=== PATIENT | male | born 1970 | race Caucasian/White ===

== ENCOUNTER 2024-10-02 23:13 | Emergency (ER) | payer OTHER, SELFPAY ==
[2024-10-02 23:16] VITALS: BP 146/76; PULSE 117; RESP 20; TEMP 37; O2SAT 96
[2024-10-02 23:23] VITALS: PULSE 114
--- NOTE | 2024-10-03 00:19 | ECG_ITS ---
Test Date: 2024-10-03 00:27:42 Measurements Intervals [place] Rate: 82 P: 50 IN: 186 QRS: -24 QRSD: 102 T: 31 QT: 386 QTc: 452 Interpretive Statements SINUS RHYTHM BORDERLINE LEFT AXIS DEVIATION [QRS AXIS < -20] OTHERWISE UNREMARKABLE ECG No previous ECG available for comparison Electronically Signed On 10-04-2024 07:20:13 CDT by Amadeo De Los Santos M.D.
--- OUTSIDE RECORDS SUMMARY | 2024-10-03 00:44 | XMS_ITS | Encounter Summary ---
Author Organization [facility] Healthcare Address [address] [place] [address] Care Team Providers Care Riveter Name Role Phone Tam Lucas MD Unavailable [phone] Mariluz Johnson MD Unavailable [phone] Omid Ellis MD Primary Care Provider Viraj Balderas MD Unavailable [phone] Encounter Details Date Type Department Care Team (Late st Contact Info) Description 09/13/2024 Results Follow-Up [facility] Primary Care at [address] [address] Omid Ellis MD [address] [place] [address] [address] [place] [address] Hepatitis B surface antibody (immune status) Blood, Hepatitis B Surface Antigen Blood, Hepatitis C antibody Blood, Additional followed-up results: 10 Social History Tobacco Use Types Packs/Day Years Used Date Smoking Tobacco: Former Cigarettes Smokeless Tobacco: Former Chew Quit: 01/27/2019 Comments:Smoking History Pac ks/day: 0 Packs. Social smoker in college. Hx of chew Alcohol Use Standard Drinks/Week Comments Yes 0 (1 standard drink = 0.6 oz pur e alcohol) AUDIT-C Answer Date Recorded Q1: How often do you have a drink containing alc ohol? 2-4 times a month 12/27/2023 Q2: How many drinks containi ng alcohol do you have on a typical day when you are drinking? 3 or 4 12/27/2023 Q3: How often do you have si x or more drinks on one occasion? Monthly 12/27/2023 PHQ-2 Answer Date Recorded PHQ-2 Total Score (If total score is 3 or more points, staff should administer the PHQ-9) 0 09/12/2024 PHQ-9 Answer Date Recorded PHQ-9 Total Score 0 12/16/2023 Personal Safety Answer Date Recorded Have you ever been in or are you currently in a harmful physical or emotional relationship or is someone making you feel afraid or unsafe? 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 Roberts from Cardiology about the results. I have called and talked with the patient about the results. He will be going to [facility] for further evaluation. * Result Encounter Note - Omid Ellis MD - 09/13/2024 6:00 AM CDT Lab results show reassuring results for the most part with low HDL cholesterol which is a good/protective cholesterol. Recommend increasing physical exercise to help increase this but your actual cholesterol total cholesterol level is within normal limits. Very good vitamin B12 levels but low vitamin-D levels so I recommend that you start taking [id number] vitamin-D 3 at least 2000 IU or higher on daily basis. If otherwise normal electrolytes, kidney function, liver enzymes and reassuringblood count. I know there is mild elevation white blood count but that is likely reactive with the wound healing over your left ear from recent surgery. No sign of diabetes or pre-diabetes. documented in this encounter Plan of Treatment Not on file documented as of this encounter Visit Diagnoses Not on filedocumented in this encounter Care Teams Riveter Relationship Specialty Start Date End Date Omid Ellis MD [address] [place] [address] PCP - General Family Medicine 09/12/24 Tam Lucas MD [address] [place] [address] Referring Physician Dermatology 07/25/24 Mariluz Johnson MD [address] [place] [address] Referring Physician Dermatology 07/25/24 Viraj Balderas MD [address] [place] [address] Referring Physician Otolaryngology 09/12/24 documented as of this encounter
--- OUTSIDE RECORDS SUMMARY | 2024-10-03 00:44 | XMS_ITS | Clinical Summary ---
Author Organization [facility] Address [address] [place] [address] Phone Care Team Providers Care Fence Rider Name Role Phone Provider, None Primary Care Provider Unavailabl e Allergies No known active allergies Medications albuterol (ProAir HFA) 108 (90 Base) MCG/ACT Aerosol SolutionIndicat ions:Cough,Symp reynaldo of wheezing take 2 Puffs by inhalation every 4 hours as needed for Wheezing or Cough. 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 Gender Identity Not on file Sexual Orientation Not on file Last Filed Vital Signs Vital Sign Reading Time Taken Comments Blood Pressure 122/80 03/15/2020 5:36 PM ACQUISITION ANALYST Pulse 98 03/15/2020 5:36 PM ACQUISITION ANALYST Temperature 37 C (98.6 F) 03/15/2020 5:36 PM ACQUISITION ANALYST Respiratory Rate - - Oxygen Saturation 96% 03/15/2020 5:36 PM ACQUISITION ANALYST Inhaled Oxygen Concentration - - Weight - - Height - - Body Mass Index - - Plan of Treatment Health Maintenance Due Date Last Done Comments Hepatitis C Virus (HCV) Screening 1972 TdaP Immunization 1972 Hepatitis B Immunization (1 of 3 - 19+ 3-dose series) 08/01/1991 Colonoscopy 2017 Colorectal Cancer Screening 2017 Cologuard 2022 Immunochemical Fecal Occult Blood 2022 Pneumococcal Immunization (5 0+ years) (1 of 1 - PCV) 2022 Zoster Immunization (1 of 2) 2022 Influenza Immunization (#1) 2023 SARS-COV-2 Immunization ( season) 2023 Respiratory Syncytial Virus (RSV) Immunization (Adult) (1 - 1-dose 75+ series) 08/01/2047 Meningococcal Immunization (ACWY) Aged Out No longer eligible based on patient's age to complete this topic Pneumococcal Immunization Combined Aged Out No longer eligible based on patient's age to complete this topic Rotavirus Immunization Aged Out No lo nger eligible based on patient's age to complete this topic Care Teams Fence Rider Relationship Specialty Start Date End Date Provider, None [place] PCP - General 03/15/20
--- OUTSIDE RECORDS SUMMARY | 2024-10-03 00:44 | XMS_ITS | Referral Summary ---
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 Name Role Phone Tam Lucas MD Unavailable [phone] Mariluz Johnson MD Unavailable [phone] Drake Candelaria MD Primary Care Provider Viraj Balderas MD Unavailable [phone] Encounters Date Type Department Care Team Description 09/28/2024 Telephone [facility] Cardiology [address] 8th [place] [address] [place] [address] Andrea Ghosh MD 09/26/2024 Orders Only [facility] Primary Care at [place] [address] [place] [address] Drake Candelaria MD Aortic root dilatation (Primary Dx); Newly recognized heart murmur 09/25/2024 Telephone [facility] Cardiology [address] [facility] [address], [place] [address] Rome Brooks MD 09/22/2024 7:53 PM CDT - 09/24/2024 3:29 PM CDT Hospital Encounter [facility] [address] [place] [address] Konala, Sivasankara R., Lisa Dodd MD Hultgren, Britt Richard, MD Aortic root dilatation (Primary Dx) Discharge Disposition: Discharge to home or self care 09/22/2024 11:15 AM CDT Ancillary Procedure [facility] Cardiology at [address] [place] [address] Newly recognized heart murmur 09/13/2024 Results Follow-Up [facility] Primary Care at [address] [address] Drake Candelaria MD Hepatitis B surface antibody (immune status) Blood, Hepatitis B Surface Antigen Blood, Hepatitis C antibody Blood, Additional followed-up results: 10 09/12/2024 10:56 AM CDT - 09/12/2024 11:59 PM CDT Hospital Encounter [address] [address] Need for hepatitis B screening test; Encounter for hepatitis C screening test for low risk patient; Preventative health care; Class 1 obesity due to excess calories without serious comorbidity with body mass index (BMI) of 30.0 to 30.9 in adult; Prostate cancer screening Discharge Disposition: Discharge to home or self care 09/12/2024 10:45 AM CDT Lab [facility] Outpatient Lab at [address] [address] 09/12/2024 10:30 AM CDT Office Visit [facility] Primary Care at [address] [address] Drake Candelaria MD Preventative health care (Primary Dx); ADHD (attention deficit hyperactivity disorder), combined type; Class 1 obesity due to excess calories without serious comorbidity with body mass index (BMI) of 30.0 to 30.9 in adult; Newly recognized heart murmur; History of malignant melanoma; Family history of colon cancer; Encounter for hepatitis C screening test for low risk patient; Need for hepatitis B screening test; Hx of colonic polyps; Prostate cancer screening; Vitamin D insufficiency 09/05/2024 1:00 PM CDT Procedure visit [facility] Dermatology [address] [place] [address] [address] [place] [address] 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) 08/30/2024 9:30 AM CDT Office Visit [facility] Dermatology [address] [place] [address] [address] [place] [address] 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) 08/29/2024 12:00 PM CDT Procedure visit [facility] Dermatology [address] [place] [address] [address] [place] [address] Laura Cast MD 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) 08/24/2024 Results Follow-Up [facility] Dermatology [address] [place] [address] [address] [place] [address] Laura Cast MD Surgical pathology 08/23/2024 Orders Only [facility] [address] [place] [address] Laura Cast MD 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); Melanoma in situ of cheek (HCC) 08/22/2024 12:30 PM CDT Procedure visit [facility] Dermatology [address] [place] [address] [address] [place] [address] Laura Cast MD 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) (Primary Dx); History of malignant melanoma; Melanoma in situ of cheek (HCC); Neoplasm of uncertain behavior of skin 08/14/2024 4:00 PM CDT Office Visit [facility] Care at [address] [address] Mary Alice John NP Felon of finger (Primary Dx) 08/08/2024 Orders Only [facility] Department of Otolaryngology Head-Neck Division [address] [facility] [address] [place] [address] Viraj Balderas MD 08/07/2024 Orders Only [facility] [address] [place] [address] Viraj Balderas MD Melanoma in situ, unspecified site (HCC) 08/04/2024 3:30 PM CDT Telemedicine [facility] [address] [phone] Liliana Villalba NP ADHD (attention deficit hyperactivity disorder), combined type (Primary Dx) 08/03/2024 Orders Only [facility]) - [facility] ENT [address]th [place] [address] [place] [address] Viraj Balderas MD Melanoma in situ, unspecified site (HCC) (Primary Dx) 07/25/2024 10:20 AM CDT Office Visit [facility] Department of Otolaryngology Head-Neck Division [address] [facility] [address] [place] [address] Viraj Balderas MD History of malignant melanoma 07/06/2024 Telephone [facility]) - [facility] ENT [address]th [place] [address] [place] [address] Shelby Lanza MS from Last 3 Months Allergies No known active allergies Medications cetirizine (ZyrTEC) 10 mg tablet Take 1 tablet (10 mg total) by mouth daily Active fluticasone propionate (FLONASE) 50 mcg/actuation nasal spray Administer 1 spray into each nostril daily Active atomoxetine (STRATTERA) 60 mg capsuleIndication s:ADHD (attention deficit hyperactivity disorder), combined type Take 1 capsule (60 mg total) by mouth daily 90 capsule 08/05/19 25 Active metoprolol XL (TOPROL-XL) 25 mg extended release tablet Take 1 tablet (25 mg total) by mouth daily 30 tablet 2 09/26/19 25 025 Active atorvastatin (LIPITOR) 40 mg tablet Take 1 tablet (40 mg total) by mouth daily 90 tablet 09/26/19 25 025 Active aspirin 81 mg chewable tablet Take 1 tablet (81 mg total) by mouth daily 30 tablet 11 09/26/19 25 026 Active azithromycin (ZITHROMAX) 250 mg tabletIndications :Lower respiratory infection (e.g., bronchitis, pneumonia, pneumonitis, pulmonitis) Take 2 tablets the first day, then 1 tablet daily for 4 days. 6 tablet 06/11/19 25 025 Discontin ued(Thera py completed ) benzonatate (TESSALON) 200 mg capsuleIndication s:Lower respiratory infection (e.g., bronchitis, pneumonia, pneumonitis, pulmonitis) Take 1 capsule (200 mg total) by mouth 3 (three) times a day as needed for cough 30 capsule 06/11/19 25 025 Discontin ued(Thera py completed ) Active Problems Problem Noted Date Diagnosed Date Aortic root dilatation 09/22/2024 Vitamin D insufficiency 09/13/2024 Assessment & Plan (09/13/2024 5:57 AM CDT): - new, noted on lab work - recommend daily Vitamin D3 supplementation 2000 -4000 international units daily Lab Results Component Value Date 25HYDROVITD 26 (L) 09/12/2024 Hx of colonic polyps 09/12/2024 Assessment & Plan (09/12/2024 10:38 AM CDT): - in two maternal uncles - hx of colon polyp - up to date with colonoscopy - 12/27/2023, told to repeat in 3 years Colonoscopy 12/26/2024 Impression: - Two small 3 to 4 mm polyps in the sigmoid colon, removed with a jumbo cold forceps. Resected and retrieved. - Internal hemorrhoids. Recommendation: - Await pathology results. - Repeat colonoscopy in 3 years for surveillance. Seasonal allergies 09/12/2024 Assessment & Plan (09/12/2024 10:51 AM CDT): Chronic seasonal allergies managed with regular Zyrtec and occasional Flonase. No significant exacerbations reported. - Continue Zyrtec as needed for allergy symptoms. - Use Flonase as needed for nasal congestion. Prostate cancer screening 09/12/2024 Newly recognized heart murmur 09/12/2024 Assessment & Plan (09/12/2024 10:52 AM CDT): Newly identified heart murmur, possibly related to heart valve function. No previous history of heart murmur, though a possible murmur was mentioned in childhood. No current symptoms of cardiac dysfunction. Echocardiogram warranted to evaluate heart structure and rule out underlying pathology, as murmurs can be benign but require confirmation. - Order echocardiogram to evaluate heart structure and function. Preventative health care 09/12/2024 Assessment & Plan (09/12/2024 10:54 AM CDT): - New or chronic worsening conditions: new heart murmur - Mental health: stable ADHD - Dental health: Recommend regular dental care and cleaning. Discussed importance of regular tooth brushing, flossing, and dental visits. - Nutrition: Recommend moderation in sodium/caffeine intake, saturated fat and cholesterol, caloric balance, sufficient intake of fresh fruits, vegetables - Exercise: Recommend to exercise at least 30 minutes moderate to vigorous exercise most days of the week. 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 Recurrence in May 2024, excised again on July 23, 2024. Healing with a small flap of skin on the back of the ear, which may require minor surgical correction if not resolved spontaneously. No family history of melanoma, but some family history of skin cancer. Significant childhood sun exposure increases recurrence risk despite excision. Surgical excision decision made after tumor board discussion, considering recurrence potential and topical treatment ineffectiveness. - Monitor healing of surgical site and consider minor surgical correction if flap of skin does not resolve. - Continue follow-up with vegetables cook and ENT specialist as needed. Class 1 obesity due to exces s calories without serious comorbidity with body mass index (BMI) of 30.0 to 30.9 in adult 12/16/2023 Assessment & Plan (09/12/2024 10:50 AM CDT): Wt Readings from Last 3 Encounters: 09/12/24 95.3 kg (210 lb) 08/14/24 99.8 kg (220 lb) 04/29/25 99.9 kg (220 lb 3.2 oz) Body mass index is 30.13 kg/m . - chronic condition, not at goal --> but improved has had about 15 lb of weight loss since last year on chart review - BMI Follow-up includes: nutrition counseling, exercise counseling and education provided - Recommend to exercise at least 30 minutes moderate to vigorous exercise most days of the week. (minimum 150 minutes weekly) Assessment & Plan (12/16/2023 5:27 PM CDT): Chronic. Stable. Suboptimally controlled. Encouraged healthy diet and lifestyle Family history of colon cancer 05/05/2023 Assessment & Plan (09/12/2024 10:38 AM CDT): - in two maternal uncles - hx of colon polyp - up to date with colonoscopy - 12/27/2023, told to repeat in 3 years Colonoscopy 12/26/2024 Impression: - Two small 3 to 4 mm polyps in the sigmoid colon, removed with a jumbo cold forceps. Resected and retrieved. - Internal hemorrhoids. Recommendation: - Await pathology results. - Repeat colonoscopy in 3 years for surveillance. ADHD (attention deficit hype ractivity disorder), combined type 08/21/2022 Assessment & Plan (09/12/2024 10:52 AM CDT): Long-standing ADHD, initially treated with Strattera from 2002 to 2007, resumed treatment upon partner's recommendation. Well-managed on 60 mg Strattera, with previous 80 mg trial did not tolerate it. No current issues with anxiety or depression. - Continue Strattera 60 mg daily. - Monitor for any changes in symptoms or side effects. Assessment & Plan (12/16/2023 5:27 PM CDT): Chronic. Well-controlled with Strattera. Continue 60 mg dosing. Continue work on coping strategies. Monitor Resolved Problems Problem Noted Date Diagnosed Date Resolved Date Blood pressure elevated with out history of HTN 08/21/2022 09/25/2022 Umbilical hernia without obs truction and without gangrene 08/21/2022 09/12/2024 Dyslipidemia 08/12/2013 09/12/2024 Atopic rhinitis 08/12/2013 08/21/2022 Overview (07/02/2016): ALLERGIC RHINITIS NOS Attention deficit disorder 08/12/2013 0 09/25/2022 Overview (07/03/2016): ATTN DEFICIT W HYPERACT Immunizations Immunization Administration Dates Next Due Influenza, Quadrivalent, Spl it, Preservative Free, Intramuscular 12/19/2022 Tdap 06/17/2023,12/06/2009 Social History Tobacco Use Types Packs/Day Years [...] making you feel afraid or unsafe? 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 Gender Identity Male 07/30/2024 11:52 PM CDT Sexual Orientation Straight 07/30/2024 11 :52 PM CDT Last Filed Vital Signs Vital Sign Reading Time Taken Comments Blood Pressure 104/46 09/24/2024 7:26 AM CDT Pulse 87 09/24/2024 9:06 AM CDT Temperature 36 C (96.8 F) 09/24/2024 7:26 AM CDT Respiratory Rate 18 09/24/2024 7:26 AM CDT Oxygen Saturation 97% 09/24/2024 7:26 AM CDT Inhaled Oxygen Concentration - - Weight 95.3 kg (210 lb 1.6 oz) 09/23/2024 12:10 AM CDT Height 177.8 cm (5' 10) 09/23/2024 12:10 AM CDT Body Mass Index 30.15 09/23/2024 12:10 AM CDT Plan of Treatment Not on file Medical Devices Implanted Type Area Experience Specialist Device Identifier Shelf Expiration Date Model / Serial / Lot [employer] Ventralex St Sepra Sorbaflex 1.7in [employer] Open Bioresorbable [id number] - [id number] Implanted:Qty: 1 on 08/06/2023 by Neville Lemon MD at [facility] N/A: Umbilical [employer] 01/23/2025 [id number] / / [id number] Procedures Procedure Name Priority Date/Time Associated Diagnosis Comments BLOOD CULTURE Routine 09/23/2024 1:08 PM CDT ERYTHROCYTE SEDIMENTATION RATE Routine 09/23/2024 1:05 PM CDT BLOOD CULTURE Routine 09/23/2024 1:05 PM CDT CRP (ACUTE PHASE) Add-On 09/22/2024 9:4 4 PM CDT EGFR STAT 09/22/2024 9:44 PM CDT DIFFERENTIAL AUTO STAT 09/22/2024 9:4 4 PM CDT PROTIME-INR STAT 09/22/2024 9:44 PM CDT PRO B-TYPE NATRIURETIC PEPTIDE STAT 09/22/2024 9:44 PM CDT COMPREHENSIVE METABOLIC PANEL STAT 09/22/2024 9:44 PM CDT CBC WITH AUTO DIFFERENTIAL STAT 09/22/2024 9:44 PM CDT URINALYSIS AND REFLEX TO MICROSCOPIC AND CULTURE STAT 09/22/2024 9:33 PM CDT CTA CHEST ABDOMEN PELVIS ED 09/22/2024 3:51 PM CDT TRANSTHORACIC ECHO (TTE) COMPLETE W DOPPLER/CF WO CONTRAST Routine 09/22/2024 11:52 AM CDT Newly recognized heart murmur EGFR Routine 09/12/2024 10:56 AM CDT Preventative health care Class 1 obesity due to excess calories without serious comorbidity with body mass index (BMI) of 30.0 to 30.9 in adult VITAMIN D 25 HYDROXY Routine 09/12/2024 10:56 AM CDT Preventative health care VITAMIN B12 Routine 09/12/2024 10:56 AM CDT Preventative health care CBC WITHOUT DIFFERENTIAL Routine 09/12/2024 10:56 AM CDT Preventative health care Class 1 obesity due to excess calories without serious comorbidity with body mass index (BMI) of 30.0 to 30.9 in adult PSA SCREEN Routine 09/12/2024 10:56 AM CDT Prostate cancer screening THYROID FUNCTION CASCADE Routine 09/12/2024 10:56 AM CDT Preventative health care Class 1 obesity due to excess calories without serious comorbidity with body mass index (BMI) of 30.0 to 30.9 in adult HEMOGLOBIN A1C Routine 09/12/2024 10:56 AM CDT Preventative health care Class 1 obesity due to excess calories without serious comorbidity with body mass index (BMI) of 30.0 to 30.9 in adult LIPID PANEL Routine 09/12/2024 10:56 AM CDT Preventative health care Class 1 obesity due to excess calories without serious comorbidity with body mass index (BMI) of 30.0 to 30.9 in adult COMPREHENSIVE METABOLIC PANEL Routine 09/12/2024 10:56 AM CDT Preventative health care Class 1 obesity due to excess calories without serious comorbidity with body mass index (BMI) of 30.0 to 30.9 in adult HEPATITIS C ANTIBODY Routine 09/12/2024 10:56 AM CDT Encounter for hepatitis C screening test for low risk patient HEPATITIS B SURFACE ANTIGEN Routine 09/12/2024 10:56 AM CDT Need for hepatitis B screening test HEPATITIS B CORE ANTIBODY, TOTAL Routine 09/12/2024 10:56 AM CDT Need for hepatitis B screening test HEPATITIS B SURFACE ANTIBODY (IMMUNE STATUS) Routine 09/12/2024 10:56 AM CDT Need for hepatitis B screening test SURGICAL PATHOLOGY Routine 08/22/2024 12 :00 AM CDT 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) SURGICAL PATHOLOGY Routine 08/08/2024 10 :12 AM CDT Melanoma in situ, unspecified site (HCC) COLONOSCOPY 12/27/2023 9:20 AM CDT from Last 3 Months or Most Recently Relevant to Health Maintenance Results * Blood culture Blood (09/23/2024 1:08 PM CDT) Report Final Report: No growth Comment:Testing performed by : [facility], [address] [place]., [address] Blood 09/23/2024 1:08 PM CDT 09/23/2024 4:08 PM CDT Kathryn CALLAHAN - 09/28/2024 7:00 AM CDT From a different site than #1. Collection->Peripheral 1. Blood cultures are incubated for 4 days on a continuously monitored blood culture system. The first report of a negative culture is issued within 24 hours of receipt of the specimen in the laboratory. 2. Positive culture results are reported as soon as they are detected. 3. The most important factor for detection of microbes in the setting of bloodstream infection is the volume of blood submitted for culture. Failure to collect an optimal blood volume can result in false negative blood cultures. 4. For pediatric patients, the recommended blood volume to collect follows a weight based strategy. See the electronic test catalog for collection instructions. 5. For positive blood cultures, a rapid molecular test may be performed for organism identification using the morris ePlex blood culture identification panel for gram positive (BCID-GP) and gram negative (BCID-GN) organisms. This nucleic acid amplification test detects microbial DNA in positive blood culture broth. This assay has been cleared by the [place] Food and Drug Administration and its performance characteristics have been verified by the [facility] Microbiology Laboratory. For questions about this culture, contact the Microbiology Laboratory at [phone]. Interpretive data was last revised on 24. us Hallie Reyna NP LAB MICROBIOLOGY - GENERA L ORDERABLES Final Result [facility] [id number] Department [place] [address] * Blood culture Blood (09/23/2024 1:05 PM CDT) Report Final Report: No growth Comment:Testing performed by : [facility], [address] [place]., [address] Blood 09/23/2024 1:05 PM CDT 09/23/2024 4:08 PM CDT Kathryn Gallardo 09/28/2024 7:00 AM CDT Collection->Peripheral 1. Blood cultures are incubated for 4 days on a continuously monitored blood culture system. The first report of a negative culture is issued within 24 hours of receipt of the specimen in the laboratory. 2. Positive culture results are reported as soon as they are detected. 3. The most important factor for detection of microbes in the setting of bloodstream infection is the volume of blood submitted for culture. Failure to collect an optimal blood volume can result in false negative blood cultures. 4. For pediatric patients, the recommended blood volume to collect follows a weight based strategy. See the electronic test catalog for collection instructions. 5. For positive blood cultures, a rapid molecular test may be performed for organism identification using the morris ePlex blood culture identification panel for gram positive (BCID-GP) and gram negative (BCID-GN) organisms. This nucleic acid amplification test detects microbial DNA in positive blood culture broth. This assay has been cleared by the [place] Food and Drug Administration and its performance characteristics have been verified by the [facility] Microbiology Laboratory. For questions about this culture, contact the Microbiology Laboratory at [phone]. Interpretive data was last revised on 24. Hallie Reyna EDGE SETTER LAB MICROBIOLOGY - GENERA L ORDERABLES Final Result Performing Organization Address City/[facility]/ZIP Co de Phone Number [facility] [id number] [place] [address] * Erythrocyte sedimentation rate (09/23/2024 1:05 PM CDT) Erythrocyte sedimentation rate 20 1 - 20 mm/hr Blood 09/23/2024 1:05 PM CDT 09/23/2024 1:14 PM CDT Hallie Reyna EDGE SETTER LAB BLOOD ORDERABLES Krystal l Result Performing Organization Address [facility] Co de Phone Number [facility] [id number] [place] [address] * eGFR (09/22/2024 9:44 PM CDT) eGFR >90 >=60 mL/min/1. 73 m2 Comment: Interpretive Data Reference Interval Normal >/= 90 mL/min/1.73m2 Mildly decreased* 60 - 89 mL/min/1.73m2 Mildly to moderately decreased 45 - 59 mL/min/1.73m2 Moderately to severely decreased 30 - 44 mL/min/1.73m2 Severely decreased 15 - 29 mL/min/1.73m2 Kidney Failure < 15 mL/min/1.73m2 *Relative to young adult level Estimated glomerular filtration rate is determined by the 2020 CKD-EPI equation recommended by the National Kidney Foundation (A Unifying Approach to GFR Estimation: Recommendations of the NKF-ASK Task Force on Reassessing the Inclusion of Race in Diagnosing Kidney Disease, JASN 2020). The CKD-EPI equation should not be used for patients with unstable renal function and has not been validated in children and those over 70. Current interpretive data was last reviewed 2021. Blood 09/22/2024 9:44 PM CDT 09/22/2024 10:12 PM CDT us Katya JIM LAB BLOOD ORDERABLES Final Re sult [facility] [id number] [place] [address] * Differential, auto (09/22/2024 9:44 PM CDT) Neutrophil abs 6.32 1.50 - 6.50 K/cumm Imm gran abs 0.04 0.00 - 0.10 K/cumm [facility] Lymphocyte abs 1.82 0.80 - 3.30 K/cumm [facility] Monocyte abs 0.56 0.20 - 0.80 K/cumm [facility] Eosinophil abs 0.42 0.00 - 0.50 K/cumm [facility] Basophil abs 0.10 0.00 - 0.10 K/cumm [facility] Neutrophil pct 68.3 % [facility] Comment: Interpretive Data Percent cell count reference ranges are not reported, since discordance with absolute values may lead to misinterpretation of CBC data. Current Interpretive Data was last revised on 2017. Imm gran pct 0.4 % [facility] Comment: Interpretive Data Percent cell count reference ranges are not reported, since discordance with absolute values may lead to misinterpretation of CBC data. Current Interpretive Data was last revised on 2017. Lymphocyte pct 19.7 % [facility] Comment: Interpretive Data Percent cell count reference ranges are not reported, since discordance with absolute values may lead to misinterpretation of CBC data. Current Interpretive Data was last revised on 2017. Monocyte pct 6.0 % [facility] Comment: Interpretive Data Percent cell count reference ranges are not reported, since discordance with absolute values may lead to misinterpretation of CBC data. Current Interpretive Data was last revised on 2017. Eosinophil pct 4.5 % [facility] Comment: Interpretive Data Percent cell count reference ranges are not reported, since discordance with absolute values may lead to misinterpretation of CBC data. Current Interpretive Data was last revised on 2017. Basophil pct 1.1 % [facility] Comment: Interpretive Data Percent cell count reference ranges are not reported, since discordance with absolute values may lead to misinterpretation of CBC data. Current Interpretive Data was last revised on 2017. Blood 09/22/2024 9:44 PM CDT 09/22/2024 10:11 PM CDT us Katya JIM LAB BLOOD ORDERABLES Final Re sult [facility] [id number] [place] [address] * (ABNORMAL) Pro B-type natriuretic peptide (09/22/2024 9:44 PM CDT) NT-proBNP 1,225(H) <=300 pg/mL Comment: Interpretive Comments: A. Dyspnea in Acute Care Setting All Ages: < 300 pg/ml, acute heart failure unlikely. < 50 yrs: 300 - 450 pg/ml, further investigation warranted. > 450 pg/ml, acute heart failure likely. 50 - 74 yrs: 300 - 900 pg/ml, further investigation warranted. > 900 pg/ml, acute heart failure likely . > or = 75 yrs: 450 - 1800 pg/ml, further investigation warranted. > 1800 pg/ml, acute heart failure likely. B. Non-acute Setting < 75 yrs < 125 pg/ml, rules out heart failure. > or = 125 pg/ml, further investigation warranted. > or = 75 yrs < 450 pg/ml, rules out heart failure. > or = 450 pg/ml, further investigation warranted. - Knowledge of each individual patient's NT-proBNP range may be more useful than using similar cut-points for every patient. Please note that marked elevations in NT-proBNP levels may be observed in state other than Left Ventricular Congestive Failure, including: acute coronary syndromes, right heart strain/failure (including pulmonary embolism and cor pulmonale), critical illness, renal failure, as well as advanced age. - References: 1. Bret AHUJA et.al. Eur Heart J. 2006:27:330-337. 2. Beltran RW, Marti WRIGHT. J. AM Karel Cardiol: Cardiovasc Imag. 2009;2: 216- 225. Interpretive Data Last Revised Date: 2017. Blood 09/22/2024 9:44 PM CDT 09/22/2024 10:12 PM CDT [email or web address] [place] LAB BLOOD ORDERABLES Final Re sult Performing Organization Address [facility]/ZIP Co de Phone Number [facility] [address] [place] [address] * (ABNORMAL) CBC with auto differential (09/22/2024 9:44 PM CDT) WBC 9.26 3.80 - 9.90 K/cumm Hgb 12.4(L) 13.0 - 17.5 g/dL CERNER Hct 38.5(L) 38.9 - 50.3 % C[facility] CH Plt 241 150 - 400 K/cumm [facility] CH MPV 10.5 9.1 - 12.3 fL CERN[facility] RBC 4.46 4.30 - 5.80 M/cumm [facility] MCV 86.3 81.3 - 96.4 fL [facility] CH MCH 27.8 27.1 - 33.3 pg CERNER MCHC 32.2(L) 32.3 - 35.7 g/dL C[facility] CH RDW CV 13.4 11.1 - 14.9 % CERNER CH RDW SD 41.6 35.7 - 48.1 fL [facility] CH NRBC abs 0.00 0.00 - 0.01 K/cumm [facility] CH Blood 09/22/2024 9:44 PM CDT 09/22/2024 10:11 PM CDT Katya Audra [place] LAB BLOOD ORDERABLES Final Re sult Performing Organization Address City/[facility]/ZIP Co de Phone Number [place] [address] [place] [address] * Protime-INR (09/22/2024 9:44 PM CDT) PT 12.0 9.7 - 13.0 sec INR 1.11 0.90 - 1.20 [facility] Comment: Interpretive data Oral anticoagulant therapeutic ranges: Venous thromboembolism prophylaxis or treatment: 2.0-3.0 CARDIOLOGY Standard range: 2.0-3.0 High-intensity range: 2.5-3.5 Refer to indication-specific guidelines for appropriate target ranges for prosthetic heart valve replacement. Current interpretive data was last revised on 2019. Blood 09/22/2024 9:44 PM CDT 09/22/2024 10:11 PM CDT Omar Aparicio MD LAB BLOOD ORDERABLES Fi nal Result Performing Organization Address City/[facility]/ZIP Co de Phone Number [facility] [address] [place] [address] * CRP (acute phase) (09/22/2024 9:44 PM CDT) Pathologist [facility] CRP 7.1 <=10.0 mg/L Blood 09/22/2024 9:44 PM CDT 09/24/2024 11:46 AM CDT Moni Milian MD LAB BLOOD ORDERABLES F inal Result Performing Organization Address City/[facility]/ZIP Co de Phone Number [facility] [address] [facility] [place] [address] * Comprehensive metabolic panel (09/22/2024 9:44 PM CDT) Pathologist [facility] Sodium 136 135 - 145 mmol/L Potassium, pl 4.0 3.3 - 4.9 mmol/L [facility] Chloride 102 97 - 110 mmol/L [facility] CO2 22 22 - 32 mmol/L [facility] Anion gap 12 2 - 15 mmol/L [facility] BUN 18 6 - 25 mg/dL [facility] Creatinine 0.89 0.80 - 1.30 mg/dL [facility] Glucose 95 70 - 199 mg/dL [facility] Comment: Interpretive Data Fasting glucose >/= 126 mg/dl is diagnostic for diabetes. Fasting is defined as no caloric intake for at least 8 hours. Fasting glucose between 100 mg/dl to 125 mg/dl is diagnostic of prediabetes. In a patient with classic symptoms of hyperglycemia or hyperglycemic crisis, a random glucose >/= 200 mg/dl is diagnostic for diabetes. In the absence of unequivocal hyperglycemia, results should be confirmed by repeat testing. The classification and Diagnosis of Diabetes Diabetes Care 2021; 46: S19-S40. Current interpretive data was last revised 2022. Calcium 9.3 8.5 - 10.3 mg/dL [facility] Bilirubin, total 0.5 0.1 - 1.2 mg/dL [facility] Protein, pl 7.4 6.5 - 8.5 g/dL [facility] Albumin 4.6 3.5 - 5.0 g/dL [facility] Alk phos 91 40 - 130 Units/L [facility] ALT 20 7 - 55 Units/L [facility] AST 29 10 - 50 Units/L [facility] Blood 09/22/2024 9:44 PM CDT 09/22/2024 10:12 PM CDT Katya JIM LAB BLOOD ORDERABLES Final Re sult [facility] [address] [place] [address] * (ABNORMAL) Urinalysis reflex to microscopic and culture Urine (09/22/2024 9:33 PM CDT) Color, ur Yellow Yellow Clarity, ur Clear Clear [facility] Specific gravity, ur >1.050(A) 1.003 - 1.030 [facility] CH pH, urine 7.0 [facility] Comment: Interpretive Data U rine pH is affected by diet, medications, systemic acid-base disturbances, and renal tubular function. pH may affect urinary stone formation. For example, urine pH below 6.0 may help reduce the tendency for calcium phosphate stones and pH greater than 6.0 may reduce the tendency for uric acid stone formation. Source: [facility] Current Interpretive Data was last revised on 2017 Protein, ur ql Negative Negative [facility] CH Glucose, ur ql Negative Negative [facility] CH Ketones, ur Negative Negative [facility] CH Bilirubin, ur Negative Negative [facility] Blood, ur Negative Negative [facility] Urobilinogen, ur <2.0 <2.0 mg/dL [facility] Nitrite, ur Negative Negative [facility] Leukocyte esterase, ur Negative Negative [facility] UA reflex comment Reflex conditions for microscopic UA and culture not met. [facility] CH Urine 09/22/2024 9:33 PM CDT 09/22/2024 9:40 PM CDT Katya JIM LAB MICROBIOLOGY - GENERAL OR DERABLES Final Result [place] [address] Department [place] [address] * CTA Chest Abdomen Pelvis (09/22/2024 3:51 PM CDT) Anatomical Region Laterality Modality Body N/A Computed Tomogra phy 09/22/2024 4:07 PM CDT Impressions 09/22/2024 4:07 PM CDT 1. Status post TEVAR with ascending thoracic aorta measuring approximately 4.3 x 4.7 cm. 2. No evidence of aortic dissection or aneurysm in the descending thoracic and abdominal aorta. 3. No definitive acute thoracic, abdominal, or pelvic findings. Electronically signed by: Ashu Martinez II, D.O. Narrative 09/22/2024 4:07 PM CDT EXAMINATION: CTA CHEST ABDOMEN PELVIS DATE: 09/22/2024 2:55 PM HISTORY: Thoracic aortic disease post TEVAR COMPARISON: None. TECHNIQUE: Transaxial computed tomographic images of the chest, abdomen, and pelvis were obtained after the administration of 118 mL of Optiray 350 intravenously using an aortic dissection protocol. Multiplanar coronal and sagittal images were reformatted. 3D volumetric analysis with VRT and MIP images were prepared by technologist on a separate workstation. FINDINGS: Vasculature: Postsurgical changes consistent with ascending thoracic aortic repair with ascending thoracic aorta measuring approximately 4.8 x 4.9 cm in maximal dimension. Dimensions may be slightly smaller potentially measuring 4.3 x 4.7 cm when the limiting for motion artifact, series 6 image 173. The descending thoracic and abdominal aorta appear within normal limits. No significant flow-limiting stenosis or evidence of dissection. Pulmonary arteries are patent. CHEST: No pneumothorax or pleural effusion. No consolidation. Thyroid is unremarkable. No mediastinal or hilar lymphadenopathy. No pericardial effusion. No lymphadenopathy. No acute osseous abnormality. Mild multilevel endplate changes in the visualized spine. Abdomen and pelvis: The liver, gallbladder, spleen, pancreas, stomach, and adrenal glands are unremarkable. There is a simple cyst in the right kidney. Left kidney is unremarkable. No hydroureteronephrosis. Bladder is unremarkable. Prostate normal in appearance. No free fluid in the pelvis. The colon and small bowel are normal in appearance. Appendix is normal. No lymphadenopathy. No acute osseous abnormality. Procedure Note Ashu Martinez II, DO - 09/22/2024 EXAMINATION: CTA CHEST ABDOMEN PELVIS DATE: 09/22/2024 2:55 PM HISTORY: Thoracic aortic disease post TEVAR COMPARISON: None. TECHNIQUE: Transaxial computed tomographic images of the chest, abdomen, and pelvis were obtained after the administration of 118 mL of Optiray 350 intravenously using an aortic dissection protocol. Multiplanar coronal and sagittal images were reformatted. 3D volumetric analysis with VRT and MIP images were prepared by technologist on a separate workstation. FINDINGS: Vasculature: Postsurgical changes consistent with ascending thoracic aortic repair with ascending thoracic aorta measuring approximately 4.8 x 4.9 cm in maximal dimension. Dimensions may be slightly smaller potentially measuring 4.3 x 4.7 cm when the limiting for motion artifact, series 6 image 173. The descending thoracic and abdominal aorta appear within normal limits. No significant flow-limiting stenosis or evidence of dissection. Pulmonary arteries are patent. CHEST: No pneumothorax or pleural effusion. No consolidation. Thyroid is unremarkable. No mediastinal or hilar lymphadenopathy. No pericardial effusion. No lymphadenopathy. No acute osseous abnormality. Mild multilevel endplate changes in the visualized spine. Abdomen and pelvis: The liver, gallbladder, spleen, pancreas, stomach, and adrenal glands are unremarkable. There is a simple cyst in the right kidney. Left kidney is unremarkable. No hydroureteronephrosis. Bladder is unremarkable. Prostate normal in appearance. No free fluid in the pelvis. The colon and small bowel are normal in appearance. Appendix is normal. No lymphadenopathy. No acute osseous abnormality. IMPRESSION: 1. Status post TEVAR with ascending thoracic aorta measuring approximately 4.3 x 4.7 cm. 2. No evidence of aortic dissection or aneurysm in the descending thoracic and abdominal aorta. 3. No definitive acute thoracic, abdominal, or pelvic findings. Electronically signed by: Evan Aldrich IIODiann us Katya JIM IMRachel CT PROCEDURES Final Resul t * TRANSTHORACIC ECHO (TTE) COMPLETE W DOPPLER/CF WO CONTRAST (09/22/2024 11:52 AM CDT) Estimated EF 55-60 % CONS SCIMAGE EF Mod BP 53 % CONS SCIMAGE Anatomical Region Laterality Modality Ultrasound 09/22/2024 11:2 7 AM CDT Narrative 09/22/2024 12:29 PM CDT [facility] Cardiology [facility], [address], [place] [address] P:[phone] P:[phone] Echocardiographic Report Patient Name: JEWEL COHEN N : 1970 Study Date: 09/22/2024 11:27:54 AM Gender: M Physician Recruiter: RANDI Location: [facility] Ref Provider: DRAKE CANDELARIA Height(Cm): 178 BSA: 2.17 Weight(Kg): 95.3 Heart Rate: 90 BP: 128 / 50 Quality: Good Order Provider: DRAKE CANDELARIA PROCEDURES: Echocardiographic Report: Transthoracic echocardiogram with complete 2D, M-Mode, and color Doppler examination. INDICATIONS: Newly Recognized Heart Murmur. MEASUREMENTS: 2D/MM Value Range Doppler Value Range EF Mod BP 53 % [ 52 - 72 ] GUERA Vmax 2.51 cm2 [ 2.00 - 4.00 ] EF Teich MM 69 % [ 52 - 72 ] AV Mean PG 10 mmHg Estimated EF 55-60 % AV Peak Nelson 2.12 m/s [ 1.00 - 1.70 ] LVIDd 2D 6.59 cm [ 4.20 - 5.80 ] AV Peak PG 18 mmHg LVIDd MM 7.46 cm [ 4.20 - 5.80 ] AV VTI 43.31 cm LVIDs 2D 3.41 cm [ 2.50 - 4.00 ] LVOT Diam 2.29 cm [ 1.70 - 2.10 ] LVIDs MM 4.49 cm [ 2.50 - 4.00 ] LVOT Peak Nelson 1.23 m/s [ 0.70 - 1.10 ] LVPWd 2D 1.25 cm [ 0.60 - 1.00 ] LVOT VTI 28.81 cm LVPWd MM 1.10 cm [ 0.60 - 1.00 ] MV E Peak Nelson 0.74 m/s [ 0.60 - 1.30 ] IVSd 2D 1.11 cm [ 0.60 - 1.00 ] MV A Peak Nelson 0.51 m/s [ 1.00 - 1.20 ] IVSd MM 0.75 cm [ 0.60 - 1.00 ] MV Decel Time 119 msec [ 104 - 258 ] LA Dimension MM 3.60 cm [ 3.00 - 4.00 ] PV Peak Nelson 0.59 m/s [ 0.40 - 0.80 ] AoR Diam MM 5.10 cm [ 3.10 - 3.70 ] Lateral E` 0.09 m/s [ 0.10 - 0.15 ] LA Volume Index 35 cc/m2 [ 16 - 34 ] E/E` 8 ACS MM 2.47 cm [ 1.50 - 2.60 ] 2D/MM Value Range Doppler Value Range - FINDINGS: Interpretation Site: Exam was interpreted at [facility]. Left Ventricle: Normal left ventricular systolic function. No focal wall motion abnormalities. Mild concentric left ventricular hypertrophy. Moderate enlargement of left ventricle cavity. Normal left ventricular diastolic function. Ejection Fraction is visually estimated to be 55-60 %. Global Longitudinal Strain is -14 %. GLS is abnormal. Right Ventricle: Normal right ventricular size. Normal right ventricular systolic function. Left Atrium: There is mild enlargement of left atrium. Right Atrium: The right atrium is normal in size. Atrial Septum: Normal atrial septum. Mitral Valve: Normal appearance of the mitral valve. Mild mitral valve regurgitation. There is no hemodynamically significant mitral stenosis by Doppler. Aortic Valve: Peak Velocity of 2.12 m/s. Peak gradient of 18.0 mmHg. Mean gradient of 10.0 mmHg. Valve area of 2.5 cm2. Aortic cusps appear severely calcified and thickened. Can not rule out vegetation. Possible bicuspid aortic valve. Severe aortic valve regurgitation. Echogenic structure seen on aortic valve concerning for vegetation. Tricuspid Valve: Normal appearance of the tricuspid valve. Right ventricular systolic pressure could not be estimated due to inadequate visualization of the tricuspid regurgitation jet. Mild tricuspid regurgitation. Pulmonic Valve: Normal appearance of the pulmonic valve. No pulmonic stenosis. Trivial regurgitation in the pulmonic valve. Pericardium: Trivial pericardial effusion. Aorta: Sinus of Valsalva is severely dilated. Sinus of Valsalva 5.3 cm. Sinotubular Junction 4.6 cm. IVC: Normal size and normal respiratory collapse consistent with normal right atrial pressure (<5 mmHg). CONCLUSIONS: Normal left ventricular systolic function. No focal wall motion abnormalities. Mild concentric left ventricular hypertrophy. Moderate enlargement of left ventricle cavity. Normal left ventricular diastolic function. Ejection Fraction is visually estimated to be 55-60 %. Global Longitudinal Strain is -14 %. GLS is abnormal. There is mild enlargement of left atrium. Mild mitral valve regurgitation. Peak Velocity of 2.12 m/s. Peak gradient of 18.0 mmHg. Mean gradient of 10.0 mmHg. Valve area of 2.5 cm2. Aortic cusps appear severely calcified and thickened. Can not rule out vegetation. Possible bicuspid aortic valve. Severe aortic valve regurgitation. Echogenic structure seen on aortic valve concerning for vegetation. Mild tricuspid regurgitation. Sinus of Valsalva is severely dilated. Sinus of Valsalva 5.3 cm. Sinotubular Junction 4.6 cm. Normal sinus rhythm. Patient has severe aortic root enlargement, severe aortic insufficiency, possible aortic valve vegetation. Patient needs evaluation as soon as possible. Recommend admission to the hospital for TAVO and further workup which will likely result in surgery. Electronically Signed By: Sma Roberts MD 09/22/2024 12:28:00 PM CDT Procedure Note Sam Roberts MD - 09/22/2024 [facility] Medical [facility] Cardiology [address], [address], [place] [address] P:[phone] P:[phone] Echocardiographic Report Patient Name: JEWEL COHEN N : 1970 Study Date: 09/22/2024 11:27:54 AM Gender: M Physician Recruiter: RANDI Location: [facility] Ref Provider: DRAKE CANDELARIA Height(Cm): 178 BSA: 2.17 Weight(Kg): 95.3 Heart Rate: 90 BP: 128 / 50 Quality: Good Order Provider: DRAKE CANDELARIA PROCEDURES: Echocardiographic Report: Transthoracic echocardiogram with complete 2D, M-Mode, and color Dopplerexamination. INDICATIONS: Newly Recognized Heart Murmur. MEASUREMENTS: 2D/MM Value Range Doppler ValueRange EF Mod BP 53 % [ 52 - 72 ] GUERA Vmax 2.51cm2 [ 2.00 - 4.00 ] EF Teich MM 69 % [ 52 - 72 ] AV Mean PG 10mmHg Estimated EF 55-60 % AV Peak Nelson 2.12m/s [ 1.00 - 1.70 ] LVIDd 2D 6.59 cm [ 4.20 - 5.80 ] AV Peak PG 18mmHg LVIDd MM 7.46 cm [ 4.20 - 5.80 ] AV VTI 43.31cm LVIDs 2D 3.41 cm [ 2.50 - 4.00 ] LVOT Diam 2.29 cm[ 1.70 - 2.10 ] LVIDs MM 4.49 cm [ 2.50 - 4.00 ] LVOT Peak Nelson 1.23m/s [ 0.70 - 1.10 ] LVPWd 2D 1.25 cm [ 0.60 - 1.00 ] LVOT VTI 28.81cm LVPWd MM 1.10 cm [ 0.60 - 1.00 ] MV E Peak Nelson 0.74m/s [ 0.60 - 1.30 ] IVSd 2D 1.11 cm [ 0.60 - 1.00 ] MV A Peak Nelson 0.51m/s [ 1.00 - 1.20 ] IVSd MM 0.75 cm [ 0.60 - 1.00 ] MV Decel Time 119msec [ 104 - 258 ] LA Dimension MM 3.60 cm [ 3.00 - 4.00 ] PV Peak Nelson 0.59m/s [ 0.40 - 0.80 ] AoR Diam MM 5.10 cm [ 3.10 - 3.70 ] Lateral E` 0.09m/s [ 0.10 - 0.15 ] LA Volume Index 35 cc/m2 [ 16 - 34 ] E/E` 8 ACS MM 2.47 cm [ 1.50 - 2.60 ] 2D/MM Value Range Doppler ValueRange - FINDINGS: Interpretation Site: Exam was interpreted at [facility]. Left Ventricle: Normal left ventricular systolic function. No focal wall motionabnormalities. Mild concentric left ventricular hypertrophy. Moderate enlargement of leftventricle cavity. Normal left ventricular diastolic function. Ejection Fraction is visuallyestimated to be 55-60 %. Global Longitudinal Strain is -14 %. GLS is abnormal. Right Ventricle: Normal right ventricular size. Normal right ventricular systolicfunction. Left Atrium: There is mild enlargement of left atrium. Right Atrium: The right atrium is normal in size. Atrial Septum: Normal atrial septum. Mitral Valve: Normal appearance of the mitral valve. Mild mitral valve regurgitation.There is no hemodynamically significant mitral stenosis by Doppler. Aortic Valve: Peak Velocity of 2.12 m/s. Peak gradient of 18.0 mmHg. Mean gradient of10.0 mmHg. Valve area of 2.5 cm2. Aortic cusps appear severely calcified and thickened. Cannot rule out vegetation. Possible bicuspid aortic valve. Severe aortic valveregurgitation. Echogenic structure seen on aortic valve concerning for vegetation. Tricuspid Valve: Normal appearance of the tricuspid valve. Right ventricular systolicpressure could not be estimated due to inadequate visualization of the tricuspidregurgitation jet. Mild tricuspid regurgitation. Pulmonic Valve: Normal appearance of the pulmonic valve. No pulmonic stenosis. Trivialregurgitation in the pulmonic valve. Pericardium: Trivial pericardial effusion. Aorta: Sinus of Valsalva is severely dilated. Sinus of Valsalva 5.3 cm.Sinotubular Junction 4.6 cm. IVC: Normal size and normal respiratory collapse consistent with normal rightatrial pressure (<5 mmHg). CONCLUSIONS: Normal left ventricular systolic function. No focal wall motionabnormalities. Mild concentric left ventricular hypertrophy. Moderate enlargement of leftventricle cavity. Normal left ventricular diastolic function. Ejection Fraction is visuallyestimated to be 55-60 %. Global Longitudinal Strain is -14 %. GLS is abnormal. There is mild enlargement of left atrium. Mild mitral valve regurgitation. Peak Velocity of 2.12 m/s. Peak gradient of 18.0 mmHg. Mean gradient of10.0 mmHg. Valve area of 2.5 cm2. Aortic cusps appear severely calcified and thickened. Cannot rule out vegetation. Possible bicuspid aortic valve. Severe aortic valveregurgitation. Echogenic structure seen on aortic valve concerning for vegetation. Mild tricuspid regurgitation. Sinus of Valsalva is severely dilated. Sinus of Valsalva 5.3 cm.Sinotubular Junction 4.6 cm. Normal sinus rhythm. Patient has severe aortic root enlargement, severe aortic insufficiency,possible aortic valve vegetation. Patient needs evaluation as soon as possible. Recommendadmission to the hospital for TAVO and further workup which will likely result insurgery. Electronically Signed By: Sam Roberts MD 09/22/2024 12:28:00 PM CDT Drake Candelaria MD CV ECHO PROCEDURES Krystal l Result * eGFR (09/12/2024 10:56 AM CDT) eGFR >90 >=60 mL/min/1. 73 m2 Comment: Interpretive Data Reference Interval Normal >/= 90 mL/min/1.73m2 Mildly decreased* 60 - 89 mL/min/1.73m2 Mildly to moderately decreased 45 - 59 mL/min/1.73m2 Moderately to severely decreased 30 - 44 mL/min/1.73m2 Severely decreased 15 - 29 mL/min/1.73m2 Kidney Failure < 15 mL/min/1.73m2 *Relative to young adult level Estimated glomerular filtration rate is determined by the 2020 CKD-EPI equation recommended by the National Kidney Foundation (A Unifying Approach to GFR Estimation: Recommendations of the NKF-ASK Task Force on Reassessing the Inclusion of Race in Diagnosing Kidney Disease, JASN 2020). The CKD-EPI equation should not be used for patients with unstable renal function and has not been validated in children and those over 70. Current interpretive data was last reviewed 2021. Blood 09/12/2024 10:5 6 AM CDT 09/12/2024 9:36 PM CDT Drake Candelaria MD LAB BLOOD ORDERABLES Fi nal Result Performing Organization Address City/[facility] Co de Phone Number [place] [address] [place], [place] [id number] * Thyroid Function [place] (09/12/2024 10:56 AM CDT) TSH 2.57 0.30 - 4.20 mcIUnit/mL Blood 09/12/2024 10:5 6 AM CDT 09/12/2024 9:21 PM CDT Drake Candelaria MD LAB BLOOD ORDERABLES Fi nal Result Performing Organization Address City/[facility] [place] [address] [place] [address] * PSA screen (09/12/2024 10:56 AM CDT) PSA-Total 0.77 <=3.90 ng/mL Comment: Interpretive Data AGE SEX REFERENCE INTERVAL 0 minutes-150 years Female None 0 minutes-49 years Male None 50-59 years Male 0-3.90 60-69 years Male 0-5.40 70-79 years Male 0-6.20 80-150 years Male 0-6.20 The [employer] PSA Total assay procedure was used. Results from different manufacturers or methods may not be comparable. Serial testing should be performed using the same method. Current interpretive data last revised 21. Blood 09/12/2024 10:5 6 AM CDT 09/12/2024 9:21 PM CDT Drake Candelaria MD LAB BLOOD ORDERABLES Fi nal Result Performing Organization Address [facility] Co de Phone Number [place] [address] [place] [address] * Hepatitis C antibody Blood (09/12/2024 10:56 AM CDT) Hep C Ab Nonreactive Nonreactive Comment: Interpretive Data Nonreactive: Antibodies to HCV not detected. Does NOT exclude the possibility of recent exposure to HCV. Equivocal: Equivocal for HCV antibodies. Supplemental molecular testing will be automatically performed to determine infection status in accordance with current CDC screening recommendations. Reactive: Positive for HCV antibodies. This may represent current or past HCV infection. Supplemental molecular testing will be automatically performed to determine current infection status in accordance with current CDC screening recommendations. Interpretive data was last revised on 2019. Blood 09/12/2024 10:5 6 AM CDT 09/12/2024 9:21 PM CDT Drake Candelaria MD LAB MICROBIOLOGY - GENE RAL ORDERABLES Final Result Performing Organization Address City/[facility] Co de Phone Number [place] [address] [place] [address] * Hepatitis B core antibody, total Blood (09/12/2024 10:56 AM CDT) Hep B core IgG/IgM Nonreactive Nonreactive Comment:Testing performed by : [facility], [address] [facility], [place]., [address] Blood 09/12/2024 10:5 6 AM CDT 09/13/2024 10:06 AM CDT Drake Candelaria MD LAB MICROBIOLOGY - GENE RAL ORDERABLES Final Result [facility] [facility] [address] [facility] [place] [address] * (ABNORMAL) Vitamin D 25 hydroxy (09/12/2024 10:56 AM CDT) [facility] Vitamin D 25-OH 26(L) 30 - 80 ng/mL Blood 09/12/2024 10:5 6 AM CDT 09/12/2024 9:21 PM CDT Drake Candelaria MD LAB BLOOD ORDERABLES Fi nal Result Performing Organization Address [facility] Co de Phone Number [place] [address] [address] [facility] [place] [address] * Hepatitis B surface antibody (immune status) Blood (09/12/2024 10:56 AM CDT) [facility] HBsAb (immune status) Reactive Comment: Interpretive Data Nonreactive: This result is consistent with a lack of immunity to Hepatitis B Virus when used in the setting of routine screening. Equivocal: The immune status of the individual should be further assessed, if appropriate, after consideration of clinical status, risk factors, and additional diagnostic information. Reactive: This result is consistent with immunity to Hepatitis B Virus when used in the setting of routine screening. Current interpretive data was last revised on 19. HBsAb (immune status) index 27.2 mIUnits/m L [facility] Blood 09/12/2024 10:5 6 AM CDT 09/12/2024 9:21 PM CDT Drake Candelaria MD LAB MICROBIOLOGY - GENE RAL ORDERABLES Final Result Performing Organization Address City/[facility]/ZIP Co de Phone Number LONDON SHAHID [phone] [facility] [place] [address] * Hepatitis B Surface Antigen Blood (09/12/2024 10:56 AM CDT) [facility] HepBsAg Nonreactive Nonreactive Blood 09/12/2024 10:5 6 AM CDT 09/12/2024 9:21 PM CDT Drake Candelaria MD LAB MICROBIOLOGY - GENE RAL ORDERABLES Final Result Performing Organization Address City/[facility]/ZIP Co de Phone Number L[place]ON SHAHID [phone] [place] [address] * (ABNORMAL) CBC without differential (09/12/2024 10:56 AM CDT) WBC 11.01(H) 3.80 - 9.90 K/cumm Hgb 13.0 13.0 - 17.5 g/dL [facility] Hct 41.5 38.9 - 50.3 % [facility] Plt 263 150 - 400 K/cumm [facility] MPV 10.9 9.1 - 12.3 fL [facility] RBC 4.58 4.30 - 5.80 M/cumm [facility] MCV 90.6 81.3 - 96.4 fL [facility] MCH 28.4 27.1 - 33.3 pg [facility] MCHC 31.3(L) 32.3 - 35.7 g/dL [facility] RDW CV 13.4 11.1 - 14.9 % [facility] RDW SD 44.5 35.7 - 48.1 fL [facility] NRBC abs 0.00 0.00 - 0.01 K/cumm [facility] Blood 09/12/2024 10:5 6 AM CDT 09/12/2024 9:21 PM CDT Drake Candelaria MD LAB BLOOD ORDERABLES Fi nal Result Performing Organization Address City/[facility]/ZIP Co de Phone Number JUAREZGADIEL SHAHID [phone] [place] [address] * Hemoglobin A1c (09/12/2024 10:56 AM CDT) Hgb A1C 5.4 4.0 - 5.6 % Estimated Average Glucose 108 mg/dL [facility] Comment: The ADA recommends reporting an estimated Average Glucose (eAG) with all Hemoglobin A1c results using the equation derived from a study of 507 normal and diabetic adults. Minority populations were underrepresented and children were not included. (Diabetes Care 31:0146-5523, 2008). The eAG is not equivalent to a fasting glucose. Blood 09/12/2024 10:5 6 AM CDT 09/12/2024 9:21 PM CDT Drake Candelaria MD LAB BLOOD ORDERABLES Fi nal Result L[place]ON KLEBER [address] [address] * Vitamin B12 (09/12/2024 10:56 AM CDT) Vitamin B12 654 230 - 1,250 pg/mL Blood 09/12/2024 10:5 6 AM CDT 09/12/2024 9:21 PM CDT Drake Candelaria MD LAB BLOOD ORDERABLES Fi nal Result Performing Organization Address City/[facility] Co de Phone Number L[place]ON [phone] [place] [address] * (ABNORMAL) Lipid panel (09/12/2024 10:56 AM CDT) Cholesterol 135 30 - 199 mg/dL Comment: Interpretive Data Ages < or = 19 years Acceptable: <170 mg/dL Borderline high: 170-199 mg/dL High: >or= 200 mg/dL Ages > or = 20 years Desirable: <200 mg/dL Borderline high: 200-239 mg/dL High: >or= 240 mg/dL Literature References: 1. Expert Panel on Integrated Guidelines for Cardiovascular Health and Risk Reduction in Children and Adolescents. Pediatrics 2011;128:S213 2. NCEP Expert Panel. Circulation 2004;110:227 Current Interpretive Data was last revised on 2017. Triglycerides 85 <=149 mg/dL [facility] SHAHID Comment: Interpretive Data Ages < or = 9 years Acceptable: <75 mg/dL Borderline high: 75-99 mg/dL High: >or= 100 mg/dL Ages 10 to 20 years Acceptable: <90 mg/dL Borderline high: 90-129 mg/dL High: >or= 130 mg/dL Ages > or = 20 years Desirable: <150 mg/dL Borderline high: 150-199 mg/dL High: 200-499 mg/dL Very high: >or= 499 mg/dL Literature References: 1. Expert Panel on Integrated Guidelines for Cardiovascular Health and Risk Reduction in Children and Adolescents. Pediatrics 2011;128:S213 2. NCEP Expert Panel. Circulation 2004;110:227 Current Interpretive Data was last revised on 2017. HDL 27(L) >=40 mg/dL [facility] SHAHID Comment: Interpretive Data Ages < or = 19 years Acceptable: >45 mg/dL Borderline low: 40-45 mg/dL Low: <40 mg/dL Ages > or = 20 years Desirable: >or= 60 mg/dL Low: <40 mg/dL Literature References: 1. Expert Panel on Integrated Guidelines for Cardiovascular Health and Risk Reduction in Children and Adolescents. Pediatrics 2011;128:S213 2. NCEP Expert Panel. Circulation 2004;110:227 Current Interpretive Data was last revised on 2017. LDL, calculated 91 <=129 mg/dL [facility] Comment: Interpretive Data Ages < or = 19 years Acceptable: <110 mg/dL Borderline high: 110-129 mg/dL High: >or= 130 mg/dL Ages > or = 20 years Optimal: <100 mg/dL Near optimal: 100-129 mg/dL Borderline high: 130-159 mg/dL High: >160 mg/dL Calculated using the Shoaib LDL-C estimating equation. This equation was implemented on 2023. Prior to this date LDL-C was estimated using the Friedewald equation. Literature References: 1. Expert Panel on Integrated Guidelines for Cardiovascular Health and Risk Reduction in Children and Adolescents. Pediatrics 2011;128:S213 2. NCEP Expert Panel. Circulation 2004;110:227 3. Shoaib Lemus. CATRINA Cardiol. 2020 July 27;5(5):540-548. doi: 10.1001/jamacardio.2020.0013 Current Interpretive Data was last revised on 2023. Non-HDL Cholesterol 108 mg/dL [facility] Comment: Interpretive Data Ages < or = 19 years Acceptable: <120 mg/dL Borderline high: 120-144 mg/dL High: >145 mg/dL Ages > or = 20 years When triglycerides are >200 mg/dL, Non-HDL cholesterol is a secondary target of therapy with treatment goals that are 30 mg/dL greater than the LDL cholesterol target. Literature References: 1. Expert Panel on Integrated Guidelines for Cardiovascular Health and Risk Reduction in Children and Adolescents. Pediatrics 2011;128:S213 2. NCEP Expert Panel. Circulation 2004;110:227 Current Interpretive Data was last revised on 2017. Chol/HDL ratio 5 [facility] Blood 09/12/2024 10:5 6 AM CDT 09/12/2024 9:21 PM CDT Narrative [facility] - 09/12/2024 10:21 PM CDT Has the patient been fasting for 8 hours or more?->No Drake Candelaria MD LAB BLOOD ORDERABLES Fi nal Result [facility] [address] [place] [address] * Comprehensive metabolic panel (09/12/2024 10:56 AM CDT) Sodium 138 135 - 145 mmol/L Potassium, pl 4.5 3.3 - 4.9 mmol/L [facility] Chloride 102 97 - 110 mmol/L [facility] CO2 24 22 - 32 mmol/L [facility] Anion gap 12 2 - 15 mmol/L [facility] BUN 18 6 - 25 mg/dL [facility] Creatinine 0.91 0.80 - 1.30 mg/dL [facility] Glucose 87 70 - 199 mg/dL [facility] Comment: Interpretive Data Fasting glucose >/= 126 mg/dl is diagnostic for diabetes. Fasting is defined as no caloric intake for at least 8 hours. Fasting glucose between 100 mg/dl to 125 mg/dl is diagnostic of prediabetes. In a patient with classic symptoms of hyperglycemia or hyperglycemic crisis, a random glucose >/= 200 mg/dl is diagnostic for diabetes. In the absence of unequivocal hyperglycemia, results should be confirmed by repeat testing. The classification and Diagnosis of Diabetes Diabetes Care 2021; 46: S19-S40. Current interpretive data was last revised 2022. Calcium 9.4 8.5 - 10.3 mg/dL [facility] Bilirubin, total 0.6 0.1 - 1.2 mg/dL [facility] Protein, pl 7.5 6.5 - 8.5 g/dL [facility] Albumin 4.3 3.5 - 5.0 g/dL [facility] Alk phos 91 40 - 130 Units/L [facility] ALT 17 7 - 55 Units/L [facility] AST 25 10 - 50 Units/L [facility] Blood 09/12/2024 10:5 6 AM CDT 09/12/2024 9:21 PM CDT Drake Candelaria MD LAB BLOOD ORDERABLES Fi nal Result [facility] [address] Department [place] [address] * Surgical pathology (08/22/2024 12:00 AM CDT) Tissue (Skin, excision) 08/22/2024 08/23/2024 8:41 AM CDT Narrative [facility] - 08/24/2024 2:54 PM CDT EPIC results best viewed via link to PDF [facility] [address] [place] [address], [address], [place] [address] [email or web address] Note to Patients: This report may contain a detailed description of human tissue sent by a health care provider to the laboratory for pathologic evaluation. The content of this report is essential for diagnosis and may provide important critical findings. This information may be unfamiliar to patients to review without a medical professional present. It is advised that the patient review this report in the presence of a health care provider who can answer questions and explain the details. FINAL REPORT Patient Information: PATIENT NAME: JEWEL COHEN SEX: M : 1970 (Age: 54) Specimen Information: COLLECTED: 08/22/2024 RECEIVED: 08/23/2024 REPORTED: 08/24/2024 Submitting Physician Information: Bertrand Cast M.D. [facility], [address] [place] [address], [address] [place] [address], [phone] DERMATOPATHOLOGY REPORT RESULTS DIAGNOSIS: A. SKIN, LEFT MID PREAURICULAR CHEEK DEBULK, STAGED EXCISION: SCAR FROM A PREVIOUS PROCEDURE Note: There is no evidence of the previously biopsied neoplasm ([id number]) in these sections. B. SKIN, LEFT MID PREAURICULAR CHEEK 12-3 O'CLOCK, STAGED EXCISION: THERE IS NO EVIDENCE OF MALIGNANCY C. SKIN, LEFT MID PREAURICULAR CHEEK 3-6 O'CLOCK, STAGED EXCISION: THERE IS NO EVIDENCE OF MALIGNANCY D. SKIN, LEFT MID PREAURICULAR CHEEK 6-9 O'CLOCK, STAGED EXCISION: THERE IS NO EVIDENCE OF MALIGNANCY E. SKIN, LEFT MID PREAURICULAR CHEEK 9-12 O'CLOCK, STAGED EXCISION: THERE IS NO EVIDENCE OF MALIGNANCY F. SKIN, LEFT INFRAAURICULAR NECK, SHAVE BIOPSY: GRANULOMATOUS DERMATITIS PROBABLY SECONDARY TO A RUPTURED CYST OR FOLLICLE Note: There is no evidence of a neoplasm in these sections. exr/ajrr By this signature, I attest that the above diagnosis is based upon my personal examination of the slides(and/or other material indicated in the diagnosis). Vimal Villalobos M.D. Report Electronically Reviewed and Signed Out By Vimal Villalobos M.D. 08/24/2024 14:54:17 CLINICAL INFORMATION A-F. MIS. SPECIMEN DATA MICROSCOPIC DESCRIPTION: A. There is a proliferation of fibroblasts aligned parallel to the skin surface interposed among linearly arranged, thickened collagen bundles and small blood vessels. (L90.5) B-E. The histological findings substantiate the above diagnosis. F. There are collections of histiocytes, some of which are multinucleated, adjacent to remnants of a follicular unit. (L72.0) GROSS DESCRIPTION: A-E. Received in 5 containers of formalin are 5 pieces of pale petty, finely scaling, hair-bearing skin and adipose tissue that correspond to the furnished diagram. Container A consists of the central debulk portion that measures 1.4 by 0.7 by 0.3 cm. This piece is serially sectioned into 5 pieces and entirely submitted in a single cassette. Due to shrinkage, measurements may be different than those at time of procedure. Container B consists of the 12-3 o c lock portion that measures 1.8 by 1.1 by 0.3 cm and has been differentially inked yellow and red by the submitting physician. This piece is entirely submitted in cassette B1 for horizontal sectioning. Due to shrinkage, measurements may be different than those at time of procedure. Container C consists of the 3-6 o c lock portion that measures 1. by 1.0 by 0.5 cm and has been differentially inked red and green by the submitting physician. This piece is entirely submitted in cassette C1 for horizontal sectioning. Due to shrinkage, measurements may be different than those at time of procedure. Container D consists of the 6-9 o c lock portion that measures 1.4 by 0.8 by 0.4 cm and has been differentially inked green and blue by the submitting physician. This piece is entirely submitted in cassette D1 for horizontal sectioning. Due to shrinkage, measurements may be different than those at time of procedure. Container E consists of the 9-12 o c lock portion that measures 1.7 by 1.0 by 0.4 cm and has been differentially inked blue and yellow by the submitting physician. This piece is entirely submitted in cassette E1 for horizontal sectioning. Due to shrinkage, measurements may be different than those at time of procedure. F. Received in a formalin-containing bottle is a superficial fragment of dome- shaped and pink-petty, scaly, hair-bearing skin measuring 0.7 by 0.7 by 0.3 cm. The surgical margin is inked blue. The specimen is sectioned into 3 pieces and submitted entirely in a single cassette. Due to shrinkage, measurements may be different than those at time of procedure. djd/mxf ICD-9 ZSD.704 ZSD.1387 Clerical Data A; 62938 B; 70605 C; 38992 D; 33226 E; 99276 F; 85993 The characteristics of special, immunohistochemical, and immunofluorescence stains and in-situ hybridization tests performed by the [facility] were deemed acceptable in ongoing ethanol quality leader measures and in compliance with regulations drawn from the Clinical Laboratory Improvement Act vq0311 (CLIA '88). Control reactions for all stains performed were deemed adequate and appropriate by a pathologist prior to evaluation of patient tissue. Some diagnoses were rendered with the assistance of laboratory-developed tests utilizing analyte-specific reagents; the performance characteristic of these tests were determined by [facility] and are not cleared or approved by the [place] Food an Drug administration. Laboratory developed test may only be performed in a facility that is certified by the [facility] as a high-complexity laboratory under CLIA '88. These tests are used for clinical purposes and are not investigational. Laura Cast MD LAB PATHOLOGY ORDERABLE S Final Result DERMATOPATHOLOGY CENTER [facility] [place] [address] * Surgical pathology (08/08/2024 10:12 AM CDT) Tissue (Miscellaneous) 08/08/2024 10:12 AM CDT 06/20/2024 Narrative [facility] - 08/11/2024 12:25 PM CDT EPIC results best viewed via link to PDF [facility] - Dermatopathology Center [address] [place] [address]., [address], [place] [address] [email or web address] CONSULT REPORT FINAL Note to Patients: This report may contain a detailed description of human tissue sent by a health care provider to the laboratory for pathologic evaluation. The content of this report is essential for diagnosis and may provide important critical findings. This information may be unfamiliar to patients to review without a medical professional present. It is advised that the patient review this report in the presence of a health care provider who can answer questions and explain the details. PATIENT INFORMATION PATIENT NAME: JEWEL COHEN SEX: Mal : [place] SPECIMEN INFORMATION COLLECTED: 06/20/2024 RECEIVED: 08/08/2024 REPORTED: 08/11/2024 PHYSICIAN INFORMATION Viraj Balderas M.D.: [facility], Ear[facility] Thro[facility] [place], [address] [place] [address]. [address] [place] [address], DERMATOPATHOLOGY REPORT RESULTS DIAGNOSIS: SKIN, LEFT MID PREAURICULAR CHEEK, SHAVE BIOPSY (CASE #[id number], 4 SLIDES RECEIVED): MALIGNANT MELANOMA IN SITU, SUPERFICIAL SPREADING TYPE sxt/ajrr By this signature, I attest that the above diagnosis is based upon my personal examination of the slides(and/or other material indicated in the diagnosis). Vimal iVllalobos M.D. Report Electronically Reviewed and Signed Out By Vimal Villalobos M.D. 08/11/2024 12:25:52 CLINICAL INFORMATION HISTORY OF MELANOMA SPECIMEN DATAMICROSCOPIC DESCRIPTION: There is a poorly circumscribed proliferation of atypical melanocytes arranged as solitary units and as nests within the epidermis, at all levels of the epidermis. Lesional melanocytes express Melan-A, SOX-10, and PRAME (4+). All immunohistochemical stains were provided by an outside laboratory for review. (D03.9) GROSS DESCRIPTION: Received for review are 4 slides, including 1 H&E and 3 immunohistochemical/special stained glass slides. The slides are labeled with the original accession [id number], accompanied by a corresponding pathology report. The material originates from [facility] ([place], [place]). Clerical Data Follows A; [id number] The characteristics of special, immunohistochemical, and immunofluorescence stains and in-situ hybridization tests performed by the [facility] were deemed acceptable in ongoing ethanol quality leader measures and in compliance with regulations drawn from the Clinical Laboratory Improvement Act ut3916 (CLIA '88). Control reactions for all stains performed were deemed adequate and appropriate by a pathologist prior to evaluation of patient tissue. Some diagnoses were rendered with the assistance of laboratory-developed tests utilizing analyte-specific reagents; the performance characteristic of these tests were determined by [facility] and are not cleared or approved by the [place] Food an Drug administration. Laboratory developed test may only be performed in a facility that is certified by the [facility] as a high-complexity laboratory under CLIA '88. These tests are used for clinical purposes and are not investigational. Viraj Balderas MD LAB PATHOLOGY ORDERABLES Fi nal Result [facility] PATHOLOGY LAB [address] [place] [address] * Colonoscopy (12/27/2023 9:20 AM CDT) Anatomical Region Laterality Modality Other Narrative Procedure Note Janes Salazar MD - 12/27/2023 9:20 AM CDT [facility] Patient Name: Jewel Cohen Procedure Date: 12/27/2023 9:20 AM Date of : 1970 Admit Type: Outpatient Age: 53 Gender: Male Attending MD: Janes Salazar M.D. Room: [facility] END[facility] 1 Note Status: Finalized Patient Profile: This is a 53 year old male. Two uncles had colon cancer. No specific GI complaints Procedure: Colonoscopy Indications[facility] Family history of colorectal cancer in multiple 2nd degree relatives, This is the patient's first colonoscopy Referring MD: Lea Persaud M.D. Providers: Janes Salazar M.D. Impression: - Two small 3 to 4 mm polyps in the sigmoid colon, removed with a jumbo cold forceps. Resected and retrieved. - Internal hemorrhoids. Recommendation: - Await pathology results. - Repeat colonoscopy in 3 years for surveillance. Medicines: Monitored Anesthesia Care Complications: No immediate complications. Estimated Blood Loss: Estimated blood loss: none. Procedure: Pre-Anesthesia Assessment: - Prior to the procedure, a History and Physicalwas performed, and patient medications and allergieswere reviewed. The patient's tolerance of previous anesthesia was also reviewed. The risks andbenefits of the procedure and the sedation options and risks were discussed with the patient. All questions were answered, and informed consent was obtained. Prior Anticoagulants: The patient has taken noanticoagulant or antiplatelet agents. ASA Grade Assessment: Per anesthesia note and evaluation. After reviewing the risks and benefits, the patient was deemed in satisfactory condition to undergo the procedure. The benefits, risks and alternatives of theprocedure and sedation were discussed and informed consentwas obtained. All questions were answered. Please referto the signed informed consent document in the medical record. The bowel preparation used was Miralax via split dose instruction. The bowel preparation usedwas bisacodyl tablets via split dose instruction. The scope was passed under direct vision. The Pediatric Colonoscope [id number]-[id number] was introducedthrough the anus and advanced to the the cecum, identifiedby appendiceal orifice and ileocecal valve. Thequality of the bowel preparation was good. Bowel prep was administered using a split dose. Findings: The perianal and digital rectal examinations were normal. The cecum appeared normal. The descending colon, transverse colon and ascending colon appeared normal. Two sessile polyps were found in the sigmoid colon. The polyps were 3to 4 mm in size. These polyps were removed with a jumbo cold forceps. Resection and retrieval were complete. Internal hemorrhoids were found during retroflexion. The hemorrhoids were small. Electronically signed by Janes Salazar M.D. Janes Salazar M.D. 12/27/2023 11:16:04 AM Number of Addenda: 0 Note Initiated On: 12/27/2023 9:20 AM Procedure Code(s): --- Professional --- 68942, Colonoscopy, flexible; with biopsy, single or multiple Diagnosis Code(s): --- Professional --- Z80.0, Family history of malignant neoplasm of digestive organs K64.8, Other hemorrhoids D12.5, Benign neoplasm of sigmoid colon CPT copyright 2020 [employer]. All rights reserved. The codes documented in this report are preliminary and upon sales solutions representative reviewmay be revised to meet current compliance requirements. Recognized by the [employer] for promoting quality in endoscopy Janes Salazar MD ENDOSCOPY PROCEDURES Final Result from Last 3 Months or Most Recently Relevant to Health Maintenance Insurance [facility] Advance Directives For more information, please contact: [phone] * Full Code (Latest Code Status on File) Date Activated Date Inactivated Comments 09/23/2024 1:12 AM 09/24/2024 7:34 PM * Full Code Date Activated Date Inactivated Comments 12/27/2023 9:27 AM 12/27/2023 4:20 PM * Full Code Date Activated Date Inactivated Comments 12/27/2023 9:27 AM 12/27/2023 9:[address] Light Repairer Helper Relationship Specialty Start Date End Date Drake Candelaria MD [address] [facility] [address] [place] [address] PCP - General Family Medicine 09/12/24 Tam Lucas MD [address] [place] [address] Referring Physician Dermatology 07/25/24 Mariluz Johnson MD [address] [place] [address] Referring Physician Dermatology 07/25/24 Viraj Balderas MD [address] [place] [address] Referring Physician Otolaryngology 09/12/24
--- OUTSIDE RECORDS SUMMARY | 2024-10-03 00:44 | XMS_ITS | Encounter Summary ---
Author Organization [facility] Address [address] [place] [address] Phone Care Team Providers Care [employer] Special Agent Name Role Phone Unknown, Notinfile Primary Care Provider Unavail able Tam Lucas MD Unavailable [phone] Mariluz Johnson MD Unavailable [phone] Omid Ellis MD Primary Care Provider Viraj Balderas MD Unavailable [phone] Encounter Details Date Type Department Care Team (Late st Contact Info) Description 08/24/2024 Results Follow[facility] Dermatology [address] [facility] [address] [place] [address] Serene, Laura Villanueva MD [address] [place] [address] [address] [place] [phone] Surgical pathology Social History Tobacco Use Types Packs/Day Years [...] points, staff should administer the PHQ-9) 0 12/16/2023 PHQ-9 Answer Date Recorded PHQ-9 Total Score 0 12/16/2023 Personal Safety Answer Date Recorded Have you ever been in or are you currently in a harmful physical or emotional relationship or is someone making you feel afraid or unsafe? Denies 12/27/2023 Sex and Gender Information Value Date Recorded Sex Assigned at Not on file Legal Sex Male 12:45 AM [employer] Gender Identity Male 07/30/2024 11:52 PM CDT Sexual Orientation Straight 07/30/2024 11 :52 PM CDT documented as of this encounter Plan of Treatment Not on file documented as of this encounter Visit Diagnoses Not on filedocumented in this encounter Care Teams [employer] Special Agent Relationship Specialty Start Date End Date Unknown, Notinfile PCP - General 06/10/24 09/11/24 Omid Ellis MD [address] [address] PCP - General Family Medicine 09/12/24 Tam Lucas MD [address] [place], [place] [id number] Referring Physician Dermatology 07/25/24 Mariluz Johnson MD [address] [place] [address] Referring Physician Dermatology 07/25/24 Viraj Balderas MD [address] [place] [address] Referring Physician Otolaryngology 09/12/24 documented as of this encounter
--- OUTSIDE RECORDS SUMMARY | 2024-10-03 00:44 | XMS_ITS | Clinical Summary ---
Author Organization [facility] Address [address] [place] [address] Care Team Providers Care Stoneworker Name Role Phone Tam Lucas MD Unavailable [phone] Mariluz Johnson MD Unavailable [phone] Drake Candelaria MD Primary Care Provider Viraj Balderas MD Unavailable [phone] Allergies No known active allergies Medications cetirizine [...] does not resolve. - Continue follow-up with floor coverer apprentice and ENT specialist as needed. Class 1 obesity due to exces s calories without serious comorbidity with body mass index (BMI) of 30.0 to 30.9 in adult 12/16/2023 Assessment & Plan (09/12/2024 10:50 AM CDT): Wt Readings from Last 3 Encounters: 09/12/24 95.3 kg (210 lb) 08/14/24 99.8 kg (220 lb) 07/25/24 99.9 kg (220 lb 3.2 oz) Body [...] 09/25/2022 Overview (07/03/2016): ATTN DEFICIT W HYPERACT Encounters Date Type Department Care Team Description 09/28/2024 Telephone [facility] Cardiology [address] 8th [place] [address] [place] [phone] Andrea Ghosh MD 09/26/2024 Orders Only [facility] Primary Care at [address] [address] Drake Candelaria MD Aortic root dilatation (Primary Dx); Newly recognized heart murmur 09/25/2024 Telephone [facility] Medical [facility] Cardiology [address] [phone] Rome Brooks MD 09/22/2024 7:53 PM CDT - 09/24/2024 3:29 PM CDT Hospital Encounter [address] [address] Omar Aparicio MD Phan, MD Rukhsana Miller Britt Richard, MD Aortic root dilatation (Primary Dx) Discharge Disposition: Discharge to home or self care 09/22/2024 11:15 AM CDT Ancillary Procedure [facility] Cardiology at [address] [place] [address] Newly recognized heart murmur 09/13/2024 Results Follow-Up [facility] Primary Care at [address] [address] Drake Candelaria MD Hepatitis B surface antibody (immune status) Blood, Hepatitis B Surface Antigen Blood, Hepatitis C antibody Blood, Additional followed-up results: 10 09/12/2024 10:56 AM CDT - 09/12/2024 11:59 PM CDT Hospital Encounter [address] [address] Need for hepatitis B screening test; Encounter for hepatitis C screening test for low risk patient; Preventative health care; Class 1 obesity due to excess calories without serious comorbidity with body mass index (BMI) of 30.0 to 30.9 in adult; Prostate cancer screening Discharge Disposition: Discharge to home or self care 09/12/2024 10:45 AM CDT Lab [facility] Outpatient Lab at [address] [phone] 09/12/2024 10:30 AM CDT Office Visit [facility] Primary Care at [address] [phone] Drake Candelaria MD Preventative health care (Primary [...] insufficiency 09/05/2024 1:00 PM CDT Procedure visit [facility] Dermatology [address] [place] [address] [address] [place] [address] 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) 08/30/2024 9:30 AM CDT Office Visit [facility] Dermatology [address] [place] [address] [address] [place] [address] 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) 08/29/2024 12:00 PM CDT Procedure visit [facility] Dermatology [address] [place] [address] [address] [place] [address] Laura Cast MD 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) 08/24/2024 Results Follow-Up [facility] Dermatology [address] [place] [address] [address] [place] [address] Laura Cast MD Surgical pathology 08/23/2024 Orders Only [facility] [address] [place] [address] Laura Cast MD 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); Melanoma in situ of cheek (HCC) 08/22/2024 12:30 PM CDT Procedure visit [facility] Dermatology [address] [place] [address] Laura Cast MD 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) (Primary Dx); History of malignant melanoma; Melanoma in situ of cheek (HCC); Neoplasm of uncertain behavior of skin 08/14/2024 4:00 PM CDT Office Visit [facility] Care at [address] [address] Mary Alice John NP Felon of finger (Primary Dx) 08/08/2024 Orders Only [facility] Department of Otolaryngology Head-Neck Division [address] [place] [address] [address] [place] [phone] Viraj Balderas MD 08/07/2024 Orders Only [facility] [address] [place] [address] Viraj Balderas MD Melanoma in situ, unspecified site (HCC) 08/04/2024 3:30 PM CDT Telemedicine [address] [address] Liliana Villalba NP ADHD (attention deficit hyperactivity disorder), combined type (Primary Dx) 08/03/2024 Orders Only [facility] ([facility] - [facility] ENT [address] [facility] 11th [place] [address] [place] [phone] Viraj Balderas MD Melanoma in situ, unspecified site (HCC) (Primary Dx) 07/25/2024 10:20 AM CDT Office Visit [facility] Department of Otolaryngology Head-Neck Division [address] [place] [address] Floor [address] [place] [address] Viraj Balderas MD History of malignant melanoma 07/06/[address] [facility] Advanced [facility] ([facility]) - [facility] ENT [address] [facility] 11th [place] [address] [place] [phone] Shelby Lanza MS from Last 3 Months Immunizations Immunization Administration Dates Next Due Influenza, Quadrivalent, Spl it, Preservative Free, Intramuscular 12/19/2022 Tdap 06/17/2023,12/06/2009 Surgical History Surgery Date Site/Laterality Comments MELANOMA RESECTION 08/22/2024 on cheek by left ear HERNIA REPAIR 08/06/2023 umbilical COLONOSCOPY 12/27/2023 1st Medical History Medical History Date Comments Hx Other Medical Left Shoulder T endonitis ADHD (attention deficit hyperactivity disorder) Umbilical hernia Cancer (HCC) SKIN CANCER Allergic rhinitis Family History Medical History Relation Name Comments Alcohol abuse Father Hernesto Cohen Atrial fibrillation Mother Tarah Cohen Diabetes Mother Tarah Cohen Diabetes marium litus; Hypertension Mother Tarah Cohen Hypertension ; Obesity Mother Tarah Cohen afib Mother Tarah Cohen Cancer Mother's Brother 1 Harjit Crawford Colon cancer Mother's Brother 1 Harjit Crawford Cancer -c olon; Cancer Mother's Brother 2 Wang Crawford . Colon cancer Mother's Brother 2 Wang Crawford Relation Name Status Comments Father Hernesto Cohen Alive Mother Tarah Cohen Alive Mother's Brother 1 Harjit Crawford Mother's Brother 2 Wang Crawford . 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 Gender Identity Male 07/30/2024 11:52 PM CDT Sexual Orientation Straight 07/30/2024 11 :52 PM CDT Obstetrics History Last Filed Vital Signs Vital Sign Reading [...] 09/23/2024 12:10 AM CDT Plan of Treatment Health Maintenance Due Date Last Done Comments Zoster Vaccine (1 of 2) 2022 Influenza Vaccine (#1) 2024 01/20/2024, 2022 Depression Screening 09/12/2025 09/12/2024, 12/16/2023, 12/16/2023, Additional history exists Regular Well Visit/Exam 18-64 09/12/2025 09/12/2024, 06/17/2023 Prostate Cancer Screening-PSA 09/12/2026 09/12/2024, 11/03/2022 Colon Cancer Screening-Colonoscopy 12/26/2026 12/27/2023 DTaP/Tdap/Td Vaccine (3 - Td or Tdap) 06/16/2033 06/17/2023, 12/06/2009 Hepatitis B Screening Completed 09/12/2024 Hepatitis C Screening Completed 09/12/2024 Pneumococcal vaccine <65 Aged Out No longer eligible based on patient's age to complete this topic Medical Devices Implanted Type Area Director Business Travel Device Identifier Shelf Expiration Date Model / Serial / Lot [employer]/C R Bard Ventralex St Sepra Sorbaflex 1.7in [place] Open Bioresorbable [id number] - [id number] Implanted:Qty: 1 on 08/06/2023 by Neville Lemon MD at [facility] N/A: Umbilical [employer] R Bard 01/23/2025 [id number] / / [id number] Procedures Procedure Name Priority Date/Time Associated Diagnosis [...] Report: No growth Comment:Testing performed by : [facility], [address] [facility] [place]., [address] Blood 09/23/2024 1:08 PM CDT 09/23/2024 4:08 PM CDT Kathryn CALLAHAN [facility] 09/28/2024 7:00 AM CDT From a different [...] performance characteristics have been verified by the [facility] Microbiology Laboratory. For questions about this culture, contact the Microbiology Laboratory at [phone]. Interpretive data was last revised on 24. us Hallie Reyna NP LAB MICROBIOLOGY - GENERA L ORDERABLES Final Result [facility] [place] [address] [address] Department [place] [address] * Blood culture Blood (09/23/2024 1:05 PM CDT) Report Final Report: No growth Comment:Testing performed by : [facility], [address] [place]., [address] Blood 09/23/2024 1:05 PM CDT 09/23/2024 4:08 [...] performance characteristics have been verified by the [facility] Microbiology Laboratory. For questions about this culture, contact the Microbiology Laboratory at [phone]. Interpretive data was last revised on 24. Hallie Reyna PHYSICAL SECURITY SPECIALIST LAB MICROBIOLOGY - GENERA L ORDERABLES Final Result [facility] [place] [address] [address] Department [employer] [place] [address] * Erythrocyte sedimentation rate (09/23/2024 1:05 PM CDT) Erythrocyte sedimentation rate 20 1 - 20 mm/hr Blood 09/23/2024 1:05 PM CDT 09/23/2024 1:14 PM CDT Hallie Reyna PHYSICAL SECURITY SPECIALIST LAB BLOOD ORDERABLES Krystal l Result Performing Organization Address [facility] Co de Phone Number [facility] [facility] [address] [address] Department [place] [address] * eGFR (09/22/2024 9:44 PM CDT) eGFR [...] JIM LAB BLOOD ORDERABLES Final Re sult [facility] [address] [address] [place] [address] * Differential, auto (09/22/2024 9:44 PM CDT) Neutrophil abs 6.32 1.50 - 6.50 K/cumm Imm gran abs 0.04 0.00 - 0.10 K/cumm [facility] Lymphocyte abs 1.82 0.80 - 3.30 K/cumm [facility] Monocyte abs 0.56 0.20 - 0.80 K/cumm [facility] Eosinophil abs 0.42 0.00 - 0.50 K/cumm [facility] Basophil abs 0.10 0.00 - 0.10 K/cumm [facility] Neutrophil pct 68.3 % [facility] Comment: Interpretive Data Percent cell count reference ranges are not reported, since discordance with absolute values may lead to misinterpretation of CBC data. Current Interpretive Data was last revised on 2017. Imm gran pct 0.4 % [facility] Comment: Interpretive Data Percent cell count reference ranges are not reported, since discordance with absolute values may lead to misinterpretation of CBC data. Current Interpretive Data was last revised on 2017. Lymphocyte pct 19.7 % [facility] Comment: Interpretive Data Percent cell count reference ranges are not reported, since discordance with absolute values may lead to misinterpretation of CBC data. Current Interpretive Data was last revised on 2017. Monocyte pct 6.0 % [facility] Comment: Interpretive Data Percent cell count reference ranges are not reported, since discordance with absolute values may lead to misinterpretation of CBC data. Current Interpretive Data was last revised on 2017. Eosinophil pct 4.5 % [facility] Comment: Interpretive Data Percent cell count reference ranges are not reported, since discordance with absolute values may lead to misinterpretation of CBC data. Current Interpretive Data was last revised on 2017. Basophil pct 1.1 % [facility] Comment: Interpretive Data Percent cell count reference ranges are not reported, since discordance with absolute values may lead to misinterpretation of CBC data. Current Interpretive Data was last revised on 2017. Blood 09/22/2024 9:44 PM CDT 09/22/2024 10:11 PM CDT Katya JIM LAB BLOOD ORDERABLES Final Re sult [place] [address] [address] [place] [address] * (ABNORMAL) Pro B-type natriuretic peptide (09/22/2024 [...] Heart J. 2006:27:330-337. 2. Beltran RW, Marti AM. J. AM Karel Cardiol: Cardiovasc Imag. 2009;2: 216- 225. Interpretive Data Last Revised Date: 2017. Blood 09/22/2024 9:44 PM CDT 09/22/2024 10:12 PM CDT Katya JIM LAB BLOOD ORDERABLES Final Re sult Performing Organization Address City/[facility]/ZIP Co de Phone Number L[place]ON [address] [place] [address] * (ABNORMAL) CBC with auto differential (09/22/2024 9:44 PM CDT) WBC 9.26 3.80 - 9.90 K/cumm Hgb 12.4(L) 13.0 - 17.5 g/dL [facility] Hct 38.5(L) 38.9 - 50.3 % [facility] Plt 241 150 - 400 K/cumm [facility] MPV 10.5 9.1 - 12.3 fL [facility] RBC 4.46 4.30 - 5.80 M/cumm [facility] MCV 86.3 81.3 - 96.4 fL [facility] MCH 27.8 27.1 - 33.3 pg CERNER MCHC 32.2(L) 32.3 - 35.7 g/dL [facility] RDW CV 13.4 11.1 - 14.9 % [facility] R[facility] SD 41.6 35.7 - 48.1 fL [facility] NRBC abs 0.00 0.00 - 0.01 K/cumm [facility] Blood 09/22/2024 9:44 PM CDT 09/22/2024 10:11 PM CDT Katya JIM LAB BLOOD ORDERABLES Final Re sult Performing Organization Address City/[facility]/ZIP Co de Phone Number [place] [address] [address] [place] [address] * Protime-INR (09/22/2024 9:44 PM CDT) PT 12.0 9.7 - 13.0 sec INR 1.11 0.90 - 1.20 [facility] Comment: Interpretive data Oral anticoagulant therapeutic ranges: Venous thromboembolism prophylaxis or treatment: 2.0-3.0 CARDIOLOGY Standard range: 2.0-3.0 High-intensity range: 2.5-3.5 Refer to indication-specific guidelines for appropriate target ranges for prosthetic heart valve replacement. Current interpretive data was last revised on 2019. Blood 09/22/2024 9:44 PM CDT 09/22/2024 10:11 PM CDT Omar Aparicio MD LAB BLOOD ORDERABLES Fi nal Result Performing Organization Address City/[facility]/ZIP Co de Phone Number [facility] [address] [address] Department [place] [address] * CRP (acute phase) (09/22/2024 9:44 PM CDT) Pathologist [facility] CRP 7.1 <=10.0 mg/L Blood 09/22/2024 9:44 PM CDT 09/24/2024 11:46 AM CDT Moni Milian MD LAB BLOOD ORDERABLES F inal Result Performing Organization Address [facility] Co de Phone Number [facility] [address] [address] Department [place] [address] * Comprehensive metabolic panel (09/22/2024 9:44 PM CDT) Sodium 136 135 - 145 mmol/L Potassium, pl 4.0 3.3 - 4.9 mmol/L [facility] Chloride 102 97 - 110 mmol/L [facility] CO2 22 22 - 32 mmol/L [facility] Anion gap 12 2 - 15 mmol/L [facility] BUN 18 6 - 25 mg/dL [facility] Creatinine 0.89 0.80 - 1.30 mg/dL [facility] Glucose 95 70 - 199 mg/dL [facility] Comment: Interpretive Data Fasting glucose >/= 126 [...] JIM LAB BLOOD ORDERABLES Final Re sult [facility] [address] [address] Department [place] [address] * (ABNORMAL) Urinalysis reflex to microscopic and [...] tendency for uric acid stone formation. Source: [facility] [employer] Current Interpretive Data was last revised on [...] 9:33 PM CDT 09/22/2024 9:40 PM CDT us Katya JIM LAB MICROBIOLOGY - GENERAL OR DERABLES Final Result JU[facility] [address] [address] [place] [address] * CTA Chest Abdomen Pelvis (09/22/2024 3:51 [...] Electronically signed by: Ashu Martinez II, D.O. us Katya JIM IMG CT PROCEDURES Final Resul t * TRANSTHORACIC ECHO (TTE) COMPLETE W DOPPLER/CF WO CONTRAST (09/22/2024 11:52 AM CDT) Estimated EF 55-60 % CONS SCIMAGE EF Mod BP 53 % CONS SCIMAGE Anatomical Region Laterality Modality Ultrasound 09/22/2024 11:2 7 AM CDT Narrative 09/22/2024 12:29 PM CDT [facility] Cardiology [address], [address], [place] [address] P:[phone] P:[phone] Echocardiographic Report Patient Name: JEWEL COHEN N : 1970 Study Date: 09/22/2024 11:27:54 AM Gender: M Follow Up Manager: RANDI Location: [facility] Ref Provider: DRAKE CANDELARIA [...] Site: Exam was interpreted at [facility]. Left Ventricle: Normal left ventricular systolic [...] likely result in surgery. Electronically Signed By: Sam Roberts MD 09/22/2024 12:28:00 PM CDT Procedure Note Sam Roberts MD - 09/22/2024 [facility] Cardiology [address], [address], [place] [address] P:[phone] P:[phone] Echocardiographic Report Patient Name: JEWEL COHEN N : 1970 Study Date: 09/22/2024 11:27:54 AM Gender: M Follow Up Manager: SW Location: [facility] Ref Provider: DRAKE CANDELARIA Height(Cm): [...] Site: Exam was interpreted at [facility]. Left Ventricle: Normal left ventricular systolic [...] Sam Roberts MD 09/22/2024 12:28:00 PM CDT [facility] Amadeo Candelaria MD CV ECHO PROCEDURES Krystal l [...] LAB BLOOD ORDERABLES Fi nal Result [place] [address] [address] [facility] [employer] [place] [address] * Thyroid Function Charmco (09/12/2024 10:56 AM CDT) TSH 2.57 0.30 - 4.20 mcIUnit/mL Blood 09/12/2024 10:5 6 AM CDT 09/12/2024 9:21 PM CDT Drake Candelaria MD LAB BLOOD ORDERABLES Fi nal Result Performing Organization Address City/[facility] Co de Phone Number [place] [address] [address] [facility] [place] [address] * PSA screen (09/12/2024 10:56 AM CDT) [...] nal Result Performing Organization Address [facility] Co de Phone Number [place] [address] [address] [employer] [place] [address] * Hepatitis C antibody Blood (09/12/2024 10:56 [...] RAL ORDERABLES Final Result Performing Organization Address [facility] de Phone Number [place] [address] [address] Department [employer] [place], [place] [id number] * Hepatitis B core antibody, total Blood (09/12/2024 10:56 AM CDT) Hep B core IgG/IgM Nonreactive Nonreactive Comment:Testing performed by : [facility], [address] [facility], [place]., [address] Blood 09/12/2024 10:5 6 AM CDT 09/13/2024 10:06 AM CDT Drake Candelaria MD LAB MICROBIOLOGY - GENE RAL ORDERABLES Final Result Performing Organization Address City/[facility] Co de Phone Number [place] SHAHID [address] [address] Department [employer] [place], [place] [id number] * (ABNORMAL) Vitamin D 25 hydroxy (09/12/2024 10:56 AM CDT) Pathologist [facility] Vitamin D 25-OH 26(L) 30 - 80 ng/mL Blood 09/12/2024 10:5 6 AM CDT 09/12/2024 9:21 PM CDT Drake Candelaria MD LAB BLOOD ORDERABLES Fi nal Result Performing Organization Address [facility] Co de Phone Number [place] [address] [address] [place] [address] * Hepatitis B surface antibody (immune status) Blood (09/12/2024 10:56 AM CDT) [facility] HBsAb (immune status) Reactive Comment: Interpretive Data [...] HBsAb (immune status) index 27.2 mIUnits/m L [facility] Blood 09/12/2024 10:5 6 AM CDT 09/12/2024 9:21 PM CDT Drake Candelaria MD LAB MICROBIOLOGY - GENE RAL ORDERABLES Final Result Performing Organization Address [facility] Co de Phone Number JUAREZGADIEL [address] [address] [place] [address] * Hepatitis B Surface Antigen Blood (09/12/2024 10:56 AM CDT) [facility] HepBsAg Nonreactive Nonreactive Blood 09/12/2024 10:5 6 AM CDT 09/12/2024 9:21 PM CDT Drake Candelaria MD LAB MICROBIOLOGY - GENE RAL ORDERABLES Final Result Performing Organization Address City/[facility] Co de Phone Number [place] [address] [address] [place] [employer] [place] [address] * (ABNORMAL) CBC without differential (09/12/2024 10:56 AM CDT) WBC 11.01(H) 3.80 - 9.90 K/cumm Hgb 13.0 13.0 - 17.5 g/dL [facility] Hct 41.5 38.9 - 50.3 % [facility] Plt 263 150 - 400 K/cumm [facility] MPV 10.9 9.1 - 12.3 fL [facility] RBC 4.58 4.30 - 5.80 M/cumm [facility] MCV 90.6 81.3 - 96.4 fL [facility] MCH 28.4 27.1 - 33.3 pg [facility] MCHC 31.3(L) 32.3 - 35.7 g/dL [facility] RDW CV 13.4 11.1 - 14.9 % [facility] RDW SD 44.5 35.7 - 48.1 fL [facility] NRBC abs 0.00 0.00 - 0.01 K/cumm [facility] Blood 09/12/2024 10:5 6 AM CDT 09/12/2024 9:21 PM CDT Drake Candelaria MD LAB BLOOD ORDERABLES Fi nal Result Performing Organization Address [facility] Co de Phone Number [place] SH[place]ID [address] [address] Department [employer] [place], [place] [id number] * Hemoglobin A1c (09/12/2024 10:56 AM CDT) Hgb A1C 5.4 4.0 - 5.6 % Estimated Average Glucose 108 mg/dL [facility] Comment: The ADA recommends reporting an estimated Average Glucose (eAG) with all Hemoglobin A1c results using the equation derived from a study of 507 normal and diabetic adults. Minority populations were underrepresented and children were not included. (Diabetes Care 31:4217-7793, 2008). The eAG is not equivalent to a fasting glucose. Blood 09/12/2024 10:5 6 AM CDT 09/12/2024 9:21 PM CDT Drake Candelaria MD LAB BLOOD ORDERABLES Fi nal Result Performing Organization Address City/[facility]/ZIP Co de Phone Number JUAREZGADIEL SHAHID [address] [address] [facility] [employer] [place] [address] * Vitamin B12 (09/12/2024 10:56 AM CDT) Vitamin B12 654 230 - 1,250 pg/mL Blood 09/12/2024 10:5 6 AM CDT 09/12/2024 9:21 PM CDT Drake Candelaria MD LAB BLOOD ORDERABLES Fi nal Result Performing Organization Address [facility] de Phone Number [place] SHAHID [address] [address] Department [place] [address] * (ABNORMAL) Lipid panel (09/12/2024 10:56 AM [...] 2017. LDL, calculated 91 <=129 mg/dL [facility] Comment: Interpretive Data Ages [...] NCEP Expert Panel. Circulation 2004;110:227 3. Shoaib Thompson al. CATRINA Cardiol. 2020 July 27;5(5):540-548. doi: 10.1001/jamacardio.2020.0013 Current Interpretive Data was last revised on 2023. Non-HDL Cholesterol 108 mg/dL [facility] Comment: Interpretive Data Ages [...] last revised on 2017. Chol/HDL ratio 5 [facility] Blood 09/12/2024 10:5 6 AM CDT 09/12/2024 9:21 PM CDT Narrative [facility] - 09/12/2024 10:21 PM CDT Has the patient been fasting for 8 hours or more?->No Drake Candelaria MD LAB BLOOD ORDERABLES Fi nal Result [facility] [facility] [address] [address] [place] [address] * Comprehensive metabolic panel (09/12/2024 10:56 AM CDT) Sodium 138 135 - 145 mmol/L Potassium, pl 4.5 3.3 - 4.9 mmol/L [facility] Chloride 102 97 - 110 mmol/L [facility] CO2 24 22 - 32 mmol/L [facility] Anion gap 12 2 - 15 mmol/L [facility] BUN 18 6 - 25 mg/dL [facility] Creatinine 0.91 0.80 - 1.30 mg/dL [facility] Glucose 87 70 - 199 mg/dL [facility] Comment: [...] 6 AM CDT 09/12/2024 9:21 PM CDT us Drake Candelaria MD LAB BLOOD ORDERAB[place] [address] [address] [place] [address] * Surgical pathology (08/22/2024 12:00 AM CDT) Tissue (Skin, excision) 08/22/2024 08/23/2024 8:41 AM CDT Narrative [facility] - 08/24/2024 2:54 PM CDT EPIC results best viewed via link to PDF [facility] [address] [place] [address], [address], [place] [address] [email or web address] Note to Patients: This report may [...] 08/24/2024 Submitting Physician Information: Bertrand Cast M.D. [facility], [address], [address] [place] [address], [phone] DERMATOPATHOLOGY REPORT RESULTS DIAGNOSIS: A. SKIN, LEFT MID PREAURICULAR CHEEK DEBULK, STAGED EXCISION: SCAR FROM A PREVIOUS PROCEDURE Note: There is no evidence of the previously biopsied neoplasm ([id number]) in these sections. B. SKIN, LEFT MID [...] djd/mxf ICD-9 ZSD.704 ZSD.1387 Clerical Data A; 50365 B; 73335 C; 94635 D; 83363 E; 44659 F; 84860 The characteristics of special, immunohistochemical, and immunofluorescence stains and in-situ hybridization tests performed by the [facility] were deemed acceptable in ongoing aircraft quality control inspector measures and in compliance with regulations drawn from the Clinical Laboratory Improvement Act iz5167 (CLIA '88). Control reactions for all stains performed were deemed adequate and appropriate by a pathologist prior to evaluation of patient tissue. Some diagnoses were rendered with the assistance of laboratory-developed tests utilizing analyte-specific reagents; the performance characteristic of these tests were determined by [facility] and are not cleared or approved by the [place] Food an Drug administration. Laboratory developed test may only be performed in a facility that is certified by the [facility] as a high-complexity laboratory under CLIA '88. These tests are used for clinical purposes and are not investigational. Laura Cast MD LAB PATHOLOGY ORDERABLE S Final Result DERMATOPATHOLOGY CENTER [facility] [place], [place] [id number] * Surgical pathology (08/08/2024 10:12 AM CDT) Tissue (Miscellaneous) 08/08/2024 10:12 AM CDT 06/20/2024 Narrative [facility] - 08/11/2024 12:25 PM CDT EPIC results best viewed via link to PDF [facility] [address], [address], [place] [address] [email or web address] CONSULT REPORT FINAL Note to Patients: [...] PATIENT INFORMATION PATIENT NAME: JEWEL COHEN SEX: M : [place] SPECIMEN INFORMATION COLLECTED: 06/20/2024 RECEIVED: 08/08/2024 REPORTED: 08/11/2024 PHYSICIAN INFORMATION Viraj Balderas M.D.: [facility] [place], [address] [place] [id number], DERMATOPATHOLOGY REPORT RESULTS DIAGNOSIS: SKIN, LEFT MID PREAURICULAR CHEEK, SHAVE BIOPSY (CASE #[id number], 4 SLIDES RECEIVED): MALIGNANT MELANOMA IN SITU, [...] slides are labeled with the original accession [id number], accompanied by a corresponding pathology report. The material originates from Cutaneous pathology ([place], [place]). Clerical Data Follows A; [id number] The characteristics of special, immunohistochemical, and immunofluorescence stains and in-situ hybridization tests performed by the [facility] were deemed acceptable in ongoing aircraft quality control inspector measures and in compliance with regulations drawn from the Clinical Laboratory Improvement Act kn2048 (CLIA '88). Control reactions for all stains performed were deemed adequate and appropriate by a pathologist prior to evaluation of patient tissue. Some diagnoses were rendered with the assistance of laboratory-developed tests utilizing analyte-specific reagents; the performance characteristic of these tests were determined by [facility] and are not cleared or approved by the [place] Food an Drug administration. Laboratory developed test may only be performed in a facility that is certified by the [facility] as a high-complexity laboratory under CLIA '88. These tests are used for clinical purposes and are not investigational. us Viraj Balderas MD LAB PATHOLOGY ORDERABLES Fi nal Result [facility] [address] [facility] [address] [place] [address] * Colonoscopy (12/27/2023 9:20 AM CDT) Anatomical Region Laterality Modality Other Narrative Procedure Note Janes Salazar MD - 12/27/2023 9:20 AM CDT [facility] Patient Name: Jewel Cohen Procedure Date: 12/27/2023 9:20 AM Date of : 1970 Admit Type: Outpatient Age: 53 Gender: Male Attending MD: Janes Salazar M.D. Room: [facility] 1 Note Status: Finalized Patient Profile: This is a 53 year old male. Two uncles had colon cancer. No specific GI complaints Procedure: Colonoscopy Indications: [facility]: Family history of colorectal cancer in multiple [...] under direct vision. The Pediatric Colonoscope [id number]-[id number] was introducedthrough the anus and advanced to [...] 9:20 AM Procedure Code(s): --- Professional --- 72395, Colonoscopy, flexible; with biopsy, single or multiple Diagnosis Code(s): --- Professional --- Z80.0, Family history of malignant neoplasm of digestive organs K64.8, Other hemorrhoids D12.5, Benign neoplasm of sigmoid colon CPT copyright 2020 [employer]. All rights reserved. The codes documented in this report are preliminary and upon operations support specialist reviewmay be revised to meet current compliance requirements. Recognized by the [employer] for promoting quality in endoscopy Janes Salazar MD ENDOSCOPY PROCEDURES Final Result from Last 3 Months or Most Recently Relevant to Health Maintenance Insurance [facility] Advance Directives For more information, please contact: [phone] * Full Code (Latest Code Status on File) Date Activated Date Inactivated Comments 09/23/2024 1:12 AM 09/24/2024 7:34 PM * Full Code Date Activated Date Inactivated Comments 12/27/2023 9:27 AM 12/27/2023 4:20 PM * Full Code Date Activated Date Inactivated Comments 12/27/2023 9:27 AM 12/27/2023 9:27 AM Care Teams Stoneworker Relationship Specialty Start Date End Date Drake Candelaria MD [address] [facility] [address] [place] [address] PCP - General Family Medicine 09/12/24 Tam Lucas MD [address] [place] [address] Referring Physician Dermatology 07/25/24 Mariluz Johnson MD [address] [place] [address] Referring Physician Dermatology 07/25/24 Viraj Balderas MD [address] [place] [address] Referring Physician Otolaryngology 09/12/24
--- OUTSIDE RECORDS SUMMARY | 2024-10-03 00:44 | XMS_ITS | Encounter Summary ---
Author Organization [facility] Address [address] [place] [address] Phone Care Team Providers Care Telecommunications Administrator Name Role Phone Tam Lucas MD Unavailable [phone] Mariluz Johnson MD Unavailable [phone] Omid Ellis MD Primary Care Provider Virja Balderas MD Unavailable [phone] Encounter Details Date Type Department Care Team (Late st Contact Info) Description 09/28/2024 Telephone [facility] Cardiology [address] [facility] [address] [place] [address] [place] [address] Andrea Ghosh MD [address] 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 Ghosh for the following diagnosis: I77.810 (ICD-10-CM) - Aortic root dilatation R01.1 (ICD-10-CM) - Newly recognized heart murmur Needs TAVO documented in this encounter Plan of Treatment Not on file documented as of this encounter Visit Diagnoses Not on filedocumented in this encounter Care Teams Telecommunications Administrator Relationship Specialty Start Date End Date Omid Ellis MD [address] [facility] [address] [place] [address] PCP - General Family Medicine 09/12/24 Tam Lucas MD [address] [place] [address] Referring Physician Dermatology 07/25/24 Mariluz Johnson MD [address] [place] [address] Referring Physician Dermatology 07/25/24 Viraj Balderas MD [address] [place] [address] Referring Physician Otolaryngology 09/12/24 documented as of this encounter
[2024-10-03 00:46] LABS: Alanine Aminotransferase 20 U/L (6-50); Albumin Level 4.3 g/dL (3.5-5.1); Alkaline Phosphatase 79 U/L (38-126); Anion Gap 10 mmol/L (4-12); Aspartate Amino Transferase 27 U/L (17-59); Bilirubin,Total 0.8 mg/dL (0.2-1.3); Blood Urea Nitrogen 16 mg/dL (9-20); Calcium 8.9 mg/dL (8.4-10.2); Carbon Dioxide 23 mmol/L (22-30); Chloride 107 mmol/L (98-107); Estimated CRCL calculation 90 ml/min; Estimated Glomerular Filt Rate > 60; Glucose 89 mg/dL (65-110); Magnesium 2.0 mg/dL (1.6-2.3); Potassium 4.0 mmol/L (3.4-5.0); Sodium 140 mmol/L (137-145); Total Protein 7.0 g/dL (6.3-8.2)
[2024-10-03 00:54] VITALS: BP 135/64; PULSE 91; RESP 16; O2SAT 98
[2024-10-03] MEDS: SODIUM CHLORIDE 0.9% IV 1,000 ML 999 ML IV CONT (00:54)
[2024-10-03 01:06] LABS: Hematocrit 36.0 % (42.0-52.0); Hemoglobin 11.7 g/dL (14.0-18.0); Immature Granulocyte Percent A 0.8 % (0-0.5); Lymphocytes Absolute Auto 2.03 K/mm3 (0.9-3.2); Mean Corpuscular HGB Conc 32.5 g/dl (32-36); Mean Corpuscular Hemoglobin 28.3 pg (26-34); Mean Corpuscular Volume 87.2 fl (80-100); Nucleated Red Blood Cells Absolute Auto 0.000 K/mm3 (0.0-0.012); Nucleated Red Blood Cells Perc 0.0 % (0.0-0.2); Platelet Count Result 185 k/mm3 (150-375); Red Blood Count 4.13 M/mm3 (4.6-6.20); White Blood Count 7.6 K/mm3 (4.5-10.0)
--- NOTE | 2024-10-03 01:18 | ED.GENADULT ---
HPI - General Adult General Chief complaint: Unspecified Stated complaint: TACHYCARDIA Time Seen by Provider: 10/03/24 00:18 History of Present Illness HPI narrative: Patient is a 54-year-old male who presents to the emergency department this evening complaining of heart palpitations/tachycardia. Patient states that his Apple watch short heart rate as high as 140. Patient's that he was spending the afternoon with his girlfriend and he was getting ready to go home. He got home and Aylin case of soda from his car to the house. As he was getting ready for bed he noticed a fluttering sensation in his chest. Did chest pain. States that he checked his apple watch and noticed that his heart rate continued to go up. Patient tried to wait it out at home but his tachycardia did not improve so he finally decided to come to the ED for further evaluation. Upon arrival to the ED, patient states that his symptoms have improved and currently denies any palpitations or chest pain. States that he was recently diagnosed with bicuspid aortic valve after his PCP heard a murmur and referred him to a residential carpet installer for an echocardiogram through [facility]. Patient states that last week he had a CT chest with IV contrast as they were concerned for possible vegetations, CT came back normal and blood testing came back negative for endocarditis. Patient denies any recent illness, fevers or chills. There are no additional modifying, alleviating, or precipitating factors at this time. Related Data Allergies Allergy/AdvReac Type Severity Reaction Status Date / Time NKDA Allergy Mild Uncoded 10/25/07 13:15 Review of Systems Review of Systems: All systems are reviewed and are negative unless stated otherwise in the HPI. Exam Narrative: General: Alert, awake, afebrile, in no acute distress. HEENT: PERRL, no rhinorrhea, no post nasal drip, oropharynx clear. Neck: Trachea midline, no JVD, no lymphadenopathy. Cardiovascular: Regular rate and rhythm, aortic murmur, rubs or gallops, no peripheral edema. Respiratory: Clear to auscultation bilaterally, no tachypnea, no wheezing, no rhonchi, no rubs, no respiratory distress. Abdomen: Soft, nontender, nondistended, no rebound, no guarding, no peritoneal signs. Musculoskeletal: No joint swelling or deformity, normal muscle tone. Skin: No rashes or petechia, no signs of infection. Psychiatric: Alert and oriented, normal behavior and judgment for situation. Neurological: Alert and oriented to person, place, and time. Follows all commands. No focal deficits, speech is clear and fluent. Course Vital Signs Vital signs: Vital Signs Temperature 98.6 F 10/02/24 23:16 Pulse Rate 117 H 10/02/24 23:16 Respiratory Rate 20 10/02/24 23:16 Blood Pressure 146/76 H 10/02/24 23:16 Pulse Oximetry 96 10/02/24 23:16 Oxygen Delivery Room Air 10/02/24 23:16 Temperature 98.6 F 10/02/24 23:16 Pulse Rate 91 10/03/24 00:54 Respiratory Rate 16 10/03/24 00:54 Blood Pressure 135/64 10/03/24 00:54 Pulse Oximetry 98 10/03/24 00:54 Oxygen Delivery Room Air 10/02/24 23:16 Medical Decision Making MDM Narrative Medical decision making narrative: The patient was evaluated by myself in the emergency department. History is obtained from patient who is an independent historian and physical exam was performed. External medical records were reviewed at this time. IV was established and pertinent tests were ordered. Patient was administered 1 L IV fluid bolus with normal saline. EKG was obtained which revealed sinus rhythm rate of 82 beats per minute, no evidence of arrhythmia or acute ischemia. EKG was independently interpreted by me and is currently pending official cardiology read. Laboratory results obtained revealing no acute process. Differential diagnosis considerations include arrhythmia, dehydration, electrolyte derangements. Comorbidities impacting this visit include recent diagnosis of bicuspid aortic valve. I have evaluated and discussed social determinants of health with the patient that could potentially impact subsequent diagnosis and treatment plans. On repeat assessment of the patient, reevaluation revealed that the patient is doing well and is in no acute distress. Patient symptoms have improved since he arrived to our emergency department. Repeat vital signs were all reviewed and noted to be stable. Differential diagnosis and treatment plan were discussed with the patient at bedside. Patient agrees with discussion and after shared medical decision making agrees with discharge. All questions were answered to the patient's satisfaction. Patient will follow up with his PCP/residential carpet installer in 3-5 days. Patient was provided with strict return precautions and instructed to return to the emergency department if any new or worsening symptoms develop. The patient was discharged in stable condition. Vital Signs Vital Signs: Vital Signs Temperature 98.6 F 10/02/24 23:16 Pulse Rate 117 H 10/02/24 23:16 Respiratory Rate 20 10/02/24 23:16 Blood Pressure 146/76 H 10/02/24 23:16 Pulse Oximetry 96 10/02/24 23:16 Oxygen Delivery Room Air 10/02/24 23:16 Temperature 98.6 F 10/02/24 23:16 Pulse Rate 91 10/03/24 00:54 Respiratory Rate 16 10/03/24 00:54 Blood Pressure 135/64 10/03/24 00:54 Pulse Oximetry 98 10/03/24 00:54 Oxygen Delivery Room Air 10/02/24 23:16 Lab Data 10/03/24 00:29 10/03/24 00:29 Labs: Lab Results 10/03/24 Range/Units 00:29 WBC 7.6 (4.5-10.0) K/mm3 RBC 4.13 L (4.6-6.20) M/mm3 Hgb 11.7 L (14.0-18.0) g/dL Hct 36.0 L (42.0-52.0) % MCV 87.2 (80-100) fl MCH 28.3 (26-34) pg MCHC 32.5 (32-36) g/dl RDW 14.1 (11.5-14.5) % Plt Count 185 (150-375) k/mm3 MPV 12.0 H (7.4-10.4) fl Immature Gran % (Auto) 0.8 H (0-0.5) % Neut % (Auto) 60.8 (45.5-73.1) % Lymph % (Auto) 26.6 (18.3-44.2) % [place] % (Auto) 5.5 (2.6-8.5) % Eos % (Auto) 5.5 H (0-4.4) % Baso % (Auto) 0.8 (0.2-1.2) % Lymph # (Auto) 2.03 (0.9-3.2) K/mm3 [place] # (Auto) 0.4 (0.1-0.6) K/mm3 Eos # (Auto) 0.4 H (0-0.3) K/mm3 Baso # (Auto) 0.1 (0.0-0.1) K/mm3 Abs Immat Gran (auto) 0.06 H (0.00-0.031) K/mm3 Absolute Neuts (auto) 4.7 (1.3-6.7) K/mm3 Absolute Nucleated RBC 0.000 (0.0-0.012) K/mm3 Nucleated RBC % 0.0 (0.0-0.2) % Sodium 140 (137-145) mmol/L Potassium 4.0 (3.4-5.0) mmol/L Chloride 107 (98-107) mmol/L Carbon Dioxide 23 (22-30) mmol/L Anion Gap 10 (4-12) mmol/L BUN 16 (9-20) mg/dL Creatinine 0.99 (0.7-1.3) mg/dL Estim Creat Clear Calc 90 ml/min Estimated GFR > 60 (59 - ) Glucose 89 (65-110) mg/dL Calcium 8.9 (8.4-10.2) mg/dL Magnesium 2.0 (1.6-2.3) mg/dL Total Bilirubin 0.8 (0.2-1.3) mg/dL AST 27 (17-59) U/L ALT 20 (6-50) U/L Alkaline Phosphatase 79 (38-126) U/L Total Protein 7.0 (6.3-8.2) g/dL Albumin 4.3 (3.5-5.1) g/dL Discharge Plan Discharge Clinical Impression: Heart palpitations Patient Disposition: Home Condition: Improved Instructions: Antibiotic Form, Heart Palpitations (ED) Additional Instructions: Please follow-up with your family doctor/residential carpet installer within the next 3-5 days. Return to the ED if any new or worsening symptoms develop. Patient Language: Bulgarian Follow-up/Referrals: PHYSICIAN,QUILL STRIPPER [Primary Care Provider] - 3 Days Time of Disposition: 01:19
[2024-10-03 01:38] VITALS: BP 134/71; PULSE 88; RESP 20; O2SAT 97
[2024-10-03 01:39] VITALS: RESP 20; O2SAT 97
[2024-10-03 02:20] VITALS: BP 134/71; PULSE 88; RESP 20; O2SAT 97
== END 2024-10-03 02:21 | disposition home or self-care (01) ==
PROVIDERS: Emergency Provider Emergency Medicine
DX: R00.2 Palpitations (principal)
CPT/HCPCS: 36415; 80053; 83735; 85025; 93005; 96360; 99284; J7030